=== PATIENT | female | born 1985 | race Caucasian/White ===

== ENCOUNTER 2018-06-08 19:28 | Inpatient (IN) ==
[2018-06-08] MEDS ORDERED: Sod Chloride 0.9% Inj 1,000 ML IV.SIG ONE ×2 (19:45→21:15)
--- NOTE | 2018-06-08 20:07 | ED ---
HPI General Chief complaint: Altered Mental Status Stated complaint: Medical Time Seen by Provider: 06/08/18 19:31 Source: patient and EMS Mode of arrival: EMS Limitations: altered mental status History of Present Illness HPI narrative: The patient is a 31 something appearing female who presents to the [facility] emergency department with a history of reportedly going into a fci prior to arrival and pulling the fire alarm in an agitated state. The patient was erratic and difficult to obtain a history from according to ambulance services. The patient was restrained for her and ambulance services safety. The patient reported that she was and plans to give the baby up for adoption. The patient reports that her due date is June 27, 2018. The patient on arrival is intermittently screaming and agitated. The patient is diaphoretic. The patient's initial blood pressure is 113/84, heart rate is in the 120s-130s. The patient had wetness noted on her pants and ambulance services were concerned that the patient may be an labor and had her water break. Review of systems is unable to be obtained from this agitated patient. She repeatedly is stating on arrival that she needs to push. Related Data Home Medications Medication Instructions Recorded Confirmed Unable to Obtain Home Meds 06/09/18 06/09/18 Allergies Allergy/AdvReac Type Severity Reaction Status Date / Time No Allergy Information Allergy Unverified 06/08/18 19:35 Available PMFSH History History Provided By: Patient Medical History Medical History Attention deficit disorder (Acute) Posttraumatic stress disorder (Acute) Surgical History Surgical History H/O abdominoplasty (Acute) H/O breast augmentation (Acute) History of (Acute) Social History Social History Substance History: Unable to Obtain Second Hand Smoke Exposure: No Smoking Status: Cognitive impairment Tobacco Type: Cigarettes How Often Do You Have a Drink Containing Alcohol: Unable to Obtain Hx Recent Travel: No Recent Travel in [facility] within the Last 8 Weeks: No Recent Out of Country Travel within the Last 8 Weeks: No Exam Narrative Exam Narrative: General: The patient is a well-developed well-nourished female, agitated on arrival, intermittently screaming. Head and Neck exam: Head is normocephalic atraumatic. Eyes: Patient has extraocular motion intact, conjugate gaze, eyes starting around the room. Pupils are dilated and reactive to light bilaterally, dilated to 5 mm. Nose: Midline septum with pink mucous membranes Mouth: Dentition unremarkable. Moist mucus membranes. Posterior oropharynx is not erythematous. No tonsillar hypertrophy. Uvula midline. Airway patent. Neck: No palpable lymphadenopathy. No nuchal rigidity. No thyromegaly. Cardiovascular: Sinus tachycardia in the 140s-160s without murmurs, gallops, or rubs. No pulse deficit to the extremities on simultaneous auscultation and palpation of her radial artery. Lungs: Clear to auscultation bilaterally. No wheezes, rhonchi, or rales. Abdomen: Soft, palpable fundus, no palpable contractions, however the patient is difficult to examine due to her level of agitation. No guarding, rebound, or rigidity. Extremities: No clubbing, cyanosis, or edema. 2+ pulses in all 4 extremities. Back: No costovertebral angle tenderness to palpation. Neurologic Exam: The patient is uncooperative, however she has no evidence of facial asymmetry. The patient is speaking clearly, although she has pressured speech. The patient is also tangential and difficult to redirect with the conversation. The patient has strength that is 5/5 in all 4 extremities. The patient has intact sensation over all dermatomes. Skin Exam: No rash noted. Intact skin that is warm and diaphoretic. Pelvic exam: Quickly upon the patient's arrival as there was a concern that the patient's water may have broken and she had wet pants, the patient had her close cut off and quickly a bimanual examination was done to assess for cervical dilatation, , or evidence of premature rupture of membranes. The patient had softening of the cervix, however no dilatation was noted, the patient had no significant bleeding or discharge noted. Procedures Ultrasound POC Ultrasound Procedure: A [id number] ultrasound was quickly done at the patient's bedside to assess for . The patient was noted to have an intrauterine that appear to be in the third trimester with heart activity noted that was tachycardic in the low 200s. The OB ED hospitalist was called. Course Consultations Consultation #1: The patient's case including history, pertinent physical examination findings were discussed with Dr. Luis, the DIVIN[employer] TE[employer]ER. I requested that he immediately come to the emergency department to assist with evaluation of this reportedly patient that also reports having some symptoms of labor. Consultation #2: The patient's case including history, pertinent physical examination were discussed with Dr. Marshall, the operations research manager. It was agreed that the patient would be admitted to the operations research manager service. Initial Documented Vital Signs Pulse Oximetry 99 06/08/18 19:48 Last Documented Vital Signs Temperature 97.6 F 06/09/18 20:00 Pulse Rate 87 06/09/18 22:00 Respiratory Rate 18 06/09/18 20:00 Blood Pressure 103/61 06/09/18 22:00 Pulse Oximetry 96 06/09/18 22:00 Critical Care Time Critical Care Time: Yes Total Critical Care Time: 39 Attestation: Aggregate critical care time was 39 minutes. Time to perform other separately billable procedures was not included in the critical care time. My time did not include minutes spent treating any other patients simultaneously or on activities that did not directly contribute to the patient's treatment. The services I provided to this patient were to treat and/or prevent clinically significant deterioration that could result in: Respiratory failure from sedation, versus agitation and self-harm, versus cardiovascular collapse from cardiac arrhythmia I provided critical care services requiring my management, as noted below: Chart data review, documentation time, medication orders and management, vital sign assessments/reviewing monitor data, ordering and reviewing lab tests, ordering and interpreting/reviewing x-rays and diagnostic studies, care of the patient and discussion of the patient with the admitting physicians. Medical Decision Making MDM Narrative Medical decision making narrative: During the course of the patient's emergency department visit, the patient's history, examination, and differential diagnosis were reviewed with the patient. The patient was placed on a school lunch monitor with oximetry and frequent blood pressure monitoring. The patient had IV access obtained and blood work sent for analysis. Diagnostic evaluation was started for this patient who arrives agitated, acutely psychotic. A call was urgently placed out to the OB ED physician for assistance with evaluation of the patient and her current . He did come down from the OB ED along with the nursing staff with tocometry and heart tone monitoring for the patient. The patient was initially provided normal saline 1 L IV fluid bolus, Ativan 1 mg IV was given in separate doses until adequate sedation was achieved with 4 mg IV in total. Laboratory studies are remarkable for a white count of 15.9, platelets 477, neutrophils 77.9, hemoglobin is 10.9. PT 9.6, PTT 19. Chemistry is remarkable for a troponin I of 0.02, CPK 3729, total bilirubin 1.3, glucose on chemistry was 55. Potassium 5.2, GFR 34, lipase 138, creatinine 1.33, MB percent 0.3, chloride 110, CO2 15.9, BUN 20, AST 58, anion gap 16. The patient's heart rate came down into the 120s with sedation. Unfortunately, the patient's heart tones were in the 210s and continue to be elevated even after the patient herself was resting comfortably, heart tones at that time were in the 180s. Monitoring was continued. The patient was admitted to the hospital in guarded condition and sent to a bed under the care of the operations research manager's service. Differential Diagnosis Differential Diagnosis: Sympathomimetic toxicity, versus acute psychosis from psychiatric decompensation Medical Records Medical records reviewed: Yes I reviewed the patient's medical records. We were able to identify the patient's name which is Cherrie Zapata. And I was able to review the patient's electronic medical record. According to the record she does have an allergy to cephalosporins. Lab Data Result diagrams: 06/09/18 01:39 06/09/18 17:50 Lab Results 06/08/18 06/08/18 06/08/18 Range/Units 20:15 20:15 20:15 WBC 15.9 H (4.0-11.0) th/mm3 RBC 3.79 L (4.00-5.30) mil/mm3 Hgb 10.9 L (11.6-15.3) gm/dL Hct 32.5 L (35.0-46.0) % MCV 85.9 (80.0-100.0) fL MCH 28.7 (27.0-34.0) pg MCHC 33.4 (32.0-36.0) % RDW 13.0 (11.6-17.2) % Plt Count 477 H (150-450) th/mm3 MPV 8.7 (7.0-11.0) fL Neut % (Auto) 77.9 H (16.0-70.0) % Lymph % (Auto) 15.2 (9.0-44.0) % Jefferson % (Auto) 6.3 (0.0-8.0) % Eos % (Auto) 0.1 (0.0-4.0) % Baso % (Auto) 0.5 (0.0-2.0) % Neut # (Auto) 12.4 H (1.8-7.7) th/mm3 Lymph # (Auto) 2.4 (1.0-4.8) th/mm3 Jefferson # (Auto) 1.0 H (0.0-0.9) th/mm3 Eos # (Auto) 0.0 (0.0-0.4) th/mm3 Baso # (Auto) 0.1 (0.0-0.2) th/mm3 WBC Differential . Differential Comment Auto diff final PT 9.6 L (9.8-11.6) sec INR 0.9 Ratio APTT 19.0 L (24.3-30.1) sec Sodium (136-145) meq/L Potassium (3.5-5.1) meq/L Chloride (98-107) meq/L Carbon Dioxide (21.0-32.0) meq/L Anion Gap (5-15) meq/L BUN (7-18) mg/dL Creatinine (0.50-1.00) mg/dL Estimated GFR (>89) mL/min POC Glucose (68-110) mg/dl Random Glucose (74-106) mg/dL Lactic Acid (0.4-2.0) mmol/L Calcium (8.5-10.1) mg/dL Prot Corrected Calcium (8.5-10.1) mg/dL Phosphorus (2.5-4.9) mg/dL Magnesium (1.5-2.5) mg/dL Total Bilirubin (0.2-1.0) mg/dL AST (15-37) U/L ALT (10-53) U/L Alkaline Phosphatase (45-117) U/L Total Creatine Kinase 3729 H (26-192) U/L CK-MB (CK-2) 10.9 H (0.5-3.6) ng/mL CK-MB (CK-2) % 0.3 (0.0-4.0) % Troponin I 0.02 (0.02-0.05) ng/mL Total Protein (6.4-8.2) g/dL Albumin (3.4-5.0) g/dL Lipase (73-393) U/L Urine Color (Yellw/Straw) Urine Clarity (Clear) Urine pH (5.0-8.5) Ur Specific [place] (1.002-1.035) Urine Protein (Neg-Trace) mg/dL Urine Glucose (UA) (Negative) mg/dL Urine Ketones (Negative) mg/dL Urine Occult Blood (Negative) Urine Nitrate (Negative) Urine Bilirubin (Negative) Urine Urobilinogen (Less than 2) mg/dL Ur Leukocyte Esterase (Negative) Ur Squamous Epith Cells (0-5) /hpf Amorphous Sediment (None) /hpf Urine Mucus (Occasional) /lpf Micro UA Comment Urine Culture Comments Nasal Screen MRSA (PCR) (Negative) Urine Opiates Screen Ur Barbiturates Screen Ur Amphetamine Screen (Neg) Ur Amphetamines Screen U Benzodiazepines Scrn Urine Cocaine Screen U Cannabinoids Screen RPR (Nonreactive) Hepatitis A IgM Ab (Nonreactive) Hep Bs Antigen (Nonreactive) Hep B Core IgM Ab (Nonreactive) Hep C IgG Ab (Nonreactive) HIV 1&2 Ab/P24 Ag 4thGn (Nonreactive) Blood Type Blood Type Recheck Antibody Screen 06/08/18 06/08/18 06/08/18 Range/Units 20:15 22:23 22:25 WBC (4.0-11.0) th/mm3 RBC (4.00-5.30) mil/mm3 Hgb (11.6-15.3) gm/dL Hct (35.0-46.0) % MCV (80.0-100.0) fL MCH (27.0-34.0) pg MCHC (32.0-36.0) % RDW (11.6-17.2) % Plt Count (150-450) th/mm3 MPV (7.0-11.0) fL Neut % (Auto) (16.0-70.0) % Lymph % (Auto) (9.0-44.0) % Jefferson % (Auto) (0.0-8.0) % Eos % (Auto) (0.0-4.0) % Baso % (Auto) (0.0-2.0) % Neut # (Auto) (1.8-7.7) th/mm3 Lymph # (Auto) (1.0-4.8) th/mm3 Jefferson # (Auto) (0.0-0.9) th/mm3 Eos # (Auto) (0.0-0.4) th/mm3 Baso # (Auto) (0.0-0.2) th/mm3 WBC Differential Differential Comment PT (9.8-11.6) sec INR Ratio APTT (24.3-30.1) sec Sodium 142 (136-145) meq/L Potassium 5.2 H (3.5-5.1) meq/L Chloride 110 H (98-107) meq/L Carbon Dioxide 15.9 L (21.0-32.0) meq/L Anion Gap 16 H (5-15) meq/L BUN 20 H (7-18) mg/dL Creatinine 1.33 H (0.50-1.00) mg/dL Estimated GFR 34 L (>89) mL/min POC Glucose 71 (68-110) mg/dl Random Glucose 55 L (74-106) mg/dL Lactic Acid (0.4-2.0) mmol/L Calcium 9.3 (8.5-10.1) mg/dL Prot Corrected Calcium (8.5-10.1) mg/dL Phosphorus (2.5-4.9) mg/dL Magnesium (1.5-2.5) mg/dL Total Bilirubin 1.3 H (0.2-1.0) mg/dL AST 58 H (15-37) U/L ALT 29 (10-53) U/L Alkaline Phosphatase 99 (45-117) U/L Total Creatine Kinase (26-192) U/L CK-MB (CK-2) (0.5-3.6) ng/mL CK-MB (CK-2) % (0.0-4.0) % Troponin I (0.02-0.05) ng/mL Total Protein 7.9 (6.4-8.2) g/dL Albumin 3.5 (3.4-5.0) g/dL Lipase 138 (73-393) U/L Urine Color Yellow (Yellw/Straw) Urine Clarity Slightly cloudy (Clear) Urine pH 5.5 (5.0-8.5) Ur Specific [place] 1.018 (1.002-1.035) Urine Protein 100 H (Neg-Trace) mg/dL Urine Glucose (UA) Negative (Negative) mg/dL Urine Ketones 40 H (Negative) mg/dL Urine Occult Blood Large H (Negative) Urine Nitrate Negative (Negative) Urine Bilirubin Negative (Negative) Urine Urobilinogen 0.2 (Less than 2) mg/dL Ur Leukocyte Esterase Negative (Negative) Ur Squamous Epith Cells 0-5 (0-5) /hpf Amorphous Sediment Few H (None) /hpf Urine Mucus Moderate H (Occasional) /lpf Micro UA Comment Cath-culture not ind Urine Culture Comments Cath-cult not ind Nasal Screen MRSA (PCR) (Negative) Urine Opiates Screen Ur Barbiturates Screen Ur Amphetamine Screen (Neg) Ur Amphetamines Screen U Benzodiazepines Scrn Urine Cocaine Screen U Cannabinoids Screen RPR (Nonreactive) Hepatitis A IgM Ab (Nonreactive) Hep Bs Antigen (Nonreactive) Hep B Core IgM Ab (Nonreactive) Hep C IgG Ab (Nonreactive) HIV 1&2 Ab/P24 Ag 4thGn (Nonreactive) Blood Type Blood Type Recheck Antibody Screen 06/08/18 06/08/18 06/09/18 Range/Units 22:25 22:25 00:35 WBC (4.0-11.0) th/mm3 RBC (4.00-5.30) mil/mm3 Hgb (11.6-15.3) gm/dL Hct (35.0-46.0) % MCV (80.0-100.0) fL MCH (27.0-34.0) pg MCHC (32.0-36.0) % RDW (11.6-17.2) % Plt Count (150-450) th/mm3 MPV (7.0-11.0) fL Neut % (Auto) (16.0-70.0) % Lymph % (Auto) (9.0-44.0) % Jefferson % (Auto) (0.0-8.0) % Eos % (Auto) (0.0-4.0) % Baso % (Auto) (0.0-2.0) % Neut # (Auto) (1.8-7.7) th/mm3 Lymph # (Auto) (1.0-4.8) th/mm3 Jefferson # (Auto) (0.0-0.9) th/mm3 Eos # (Auto) (0.0-0.4) th/mm3 Baso # (Auto) (0.0-0.2) th/mm3 WBC Differential Differential Comment PT (9.8-11.6) sec INR Ratio APTT (24.3-30.1) sec Sodium (136-145) meq/L Potassium (3.5-5.1) meq/L Chloride (98-107) meq/L Carbon Dioxide (21.0-32.0) meq/L Anion Gap (5-15) meq/L BUN (7-18) mg/dL Creatinine (0.50-1.00) mg/dL Estimated GFR (>89) mL/min POC Glucose (68-110) mg/dl Random Glucose (74-106) mg/dL Lactic Acid (0.4-2.0) mmol/L Calcium (8.5-10.1) mg/dL Prot Corrected Calcium (8.5-10.1) mg/dL Phosphorus (2.5-4.9) mg/dL Magnesium (1.5-2.5) mg/dL Total Bilirubin (0.2-1.0) mg/dL AST (15-37) U/L ALT (10-53) U/L Alkaline Phosphatase (45-117) U/L Total Creatine Kinase (26-192) U/L CK-MB (CK-2) (0.5-3.6) ng/mL CK-MB (CK-2) % (0.0-4.0) % Troponin I (0.02-0.05) ng/mL Total Protein (6.4-8.2) g/dL Albumin (3.4-5.0) g/dL Lipase (73-393) U/L Urine Color (Yellw/Straw) Urine Clarity (Clear) Urine pH (5.0-8.5) Ur Specific [place] (1.002-1.035) Urine Protein (Neg-Trace) mg/dL Urine Glucose (UA) (Negative) mg/dL Urine Ketones (Negative) mg/dL Urine Occult Blood (Negative) Urine Nitrate (Negative) Urine Bilirubin (Negative) Urine Urobilinogen (Less than 2) mg/dL Ur Leukocyte Esterase (Negative) Ur Squamous Epith Cells (0-5) /hpf Amorphous Sediment (None) /hpf Urine Mucus (Occasional) /lpf Micro UA Comment Urine Culture Comments Nasal Screen MRSA (PCR) Not detected (Negative) Urine Opiates Screen Cancelled Neg Ur Barbiturates Screen Cancelled Neg Ur Amphetamine Screen Pos H (Neg) Ur Amphetamines Screen Cancelled U Benzodiazepines Scrn Cancelled Neg Urine Cocaine Screen Cancelled Neg U Cannabinoids Screen Cancelled Neg RPR (Nonreactive) Hepatitis A IgM Ab (Nonreactive) Hep Bs Antigen (Nonreactive) Hep B Core IgM Ab (Nonreactive) Hep C IgG Ab (Nonreactive) HIV 1&2 Ab/P24 Ag 4thGn (Nonreactive) Blood Type Blood Type Recheck Antibody Screen 06/09/18 06/09/18 06/09/18 Range/Units 01:15 01:39 01:39 WBC (4.0-11.0) th/mm3 RBC (4.00-5.30) mil/mm3 Hgb (11.6-15.3) gm/dL Hct (35.0-46.0) % MCV (80.0-100.0) fL MCH (27.0-34.0) pg MCHC (32.0-36.0) % RDW (11.6-17.2) % Plt Count (150-450) th/mm3 MPV (7.0-11.0) fL Neut % (Auto) (16.0-70.0) % Lymph % (Auto) (9.0-44.0) % Jefferson % (Auto) (0.0-8.0) % Eos % (Auto) (0.0-4.0) % Baso % (Auto) (0.0-2.0) % Neut # (Auto) (1.8-7.7) th/mm3 Lymph # (Auto) (1.0-4.8) th/mm3 Jefferson # (Auto) (0.0-0.9) th/mm3 Eos # (Auto) (0.0-0.4) th/mm3 Baso # (Auto) (0.0-0.2) th/mm3 WBC Differential Differential Comment PT 9.5 L (9.8-11.6) sec INR 0.9 Ratio APTT 23.1 L D (24.3-30.1) sec Sodium (136-145) meq/L Potassium (3.5-5.1) meq/L Chloride (98-107) meq/L Carbon Dioxide (21.0-32.0) meq/L Anion Gap (5-15) meq/L BUN (7-18) mg/dL Creatinine (0.50-1.00) mg/dL Estimated GFR (>89) mL/min POC Glucose 163 H (68-110) mg/dl Random Glucose (74-106) mg/dL Lactic Acid (0.4-2.0) mmol/L Calcium (8.5-10.1) mg/dL Prot Corrected Calcium (8.5-10.1) mg/dL Phosphorus (2.5-4.9) mg/dL Magnesium (1.5-2.5) mg/dL Total Bilirubin (0.2-1.0) mg/dL AST (15-37) U/L ALT (10-53) U/L Alkaline Phosphatase (45-117) U/L Total Creatine Kinase (26-192) U/L CK-MB (CK-2) (0.5-3.6) ng/mL CK-MB (CK-2) % (0.0-4.0) % Troponin I (0.02-0.05) ng/mL Total Protein (6.4-8.2) g/dL Albumin (3.4-5.0) g/dL Lipase (73-393) U/L Urine Color (Yellw/Straw) Urine Clarity (Clear) Urine pH (5.0-8.5) Ur Specific [place] (1.002-1.035) Urine Protein (Neg-Trace) mg/dL Urine Glucose (UA) (Negative) mg/dL Urine Ketones (Negative) mg/dL Urine Occult Blood (Negative) Urine Nitrate (Negative) Urine Bilirubin (Negative) Urine Urobilinogen (Less than 2) mg/dL Ur Leukocyte Esterase (Negative) Ur Squamous Epith Cells (0-5) /hpf Amorphous Sediment (None) /hpf Urine Mucus (Occasional) /lpf Micro UA Comment Urine Culture Comments Nasal Screen MRSA (PCR) (Negative) Urine Opiates Screen Ur Barbiturates Screen Ur Amphetamine Screen (Neg) Ur Amphetamines Screen U Benzodiazepines Scrn Urine Cocaine Screen U Cannabinoids Screen RPR (Nonreactive) Hepatitis A IgM Ab (Nonreactive) Hep Bs Antigen (Nonreactive) Hep B Core IgM Ab (Nonreactive) Hep C IgG Ab (Nonreactive) HIV 1&2 Ab/P24 Ag 4thGn (Nonreactive) Blood Type O Positive Blood Type Recheck Not needed Antibody Screen Negative 06/09/18 06/09/18 06/09/18 Range/Units 01:39 01:39 01:39 WBC 14.0 H (4.0-11.0) th/mm3 RBC 3.52 L (4.00-5.30) mil/mm3 Hgb 10.1 L (11.6-15.3) gm/dL Hct 30.5 L (35.0-46.0) % MCV 86.7 (80.0-100.0) fL MCH 28.8 (27.0-34.0) pg MCHC 33.3 (32.0-36.0) % RDW 13.5 (11.6-17.2) % Plt Count 353 (150-450) th/mm3 MPV 8.0 (7.0-11.0) fL Neut % (Auto) 91.4 H (16.0-70.0) % Lymph % (Auto) 5.4 L (9.0-44.0) % Jefferson % (Auto) 3.1 (0.0-8.0) % Eos % (Auto) 0.0 (0.0-4.0) % Baso % (Auto) 0.1 (0.0-2.0) % Neut # (Auto) 12.8 H (1.8-7.7) th/mm3 Lymph # (Auto) 0.8 L (1.0-4.8) th/mm3 Jefferson # (Auto) 0.4 (0.0-0.9) th/mm3 Eos # (Auto) 0.0 (0.0-0.4) th/mm3 Baso # (Auto) 0.0 (0.0-0.2) th/mm3 WBC Differential . Differential Comment Auto diff final PT (9.8-11.6) sec INR Ratio APTT (24.3-30.1) sec Sodium 142 (136-145) meq/L Potassium 4.1 D (3.5-5.1) meq/L Chloride 114 H (98-107) meq/L Carbon Dioxide 9.2 L (21.0-32.0) meq/L Anion Gap 19 H (5-15) meq/L BUN 17 (7-18) mg/dL Creatinine 0.91 (0.50-1.00) mg/dL Estimated GFR 53 L (>89) mL/min POC Glucose (68-110) mg/dl Random Glucose 152 H (74-106) mg/dL Lactic Acid 0.7 (0.4-2.0) mmol/L Calcium 7.7 L D (8.5-10.1) mg/dL Prot Corrected Calcium (8.5-10.1) mg/dL Phosphorus 4.5 (2.5-4.9) mg/dL Magnesium 4.7 H (1.5-2.5) mg/dL Total Bilirubin 0.8 (0.2-1.0) mg/dL AST 313 H (15-37) U/L ALT 82 H (10-53) U/L Alkaline Phosphatase 86 (45-117) U/L Total Creatine Kinase (26-192) U/L CK-MB (CK-2) (0.5-3.6) ng/mL CK-MB (CK-2) % (0.0-4.0) % Troponin I 0.13 H D (0.02-0.05) ng/mL Total Protein 6.7 D (6.4-8.2) g/dL Albumin 3.1 L (3.4-5.0) g/dL Lipase (73-393) U/L Urine Color (Yellw/Straw) Urine Clarity (Clear) Urine pH (5.0-8.5) Ur Specific [place] (1.002-1.035) Urine Protein (Neg-Trace) mg/dL Urine Glucose (UA) (Negative) mg/dL Urine Ketones (Negative) mg/dL Urine Occult Blood (Negative) Urine Nitrate (Negative) Urine Bilirubin (Negative) Urine Urobilinogen (Less than 2) mg/dL Ur Leukocyte Esterase (Negative) Ur Squamous Epith Cells (0-5) /hpf Amorphous Sediment (None) /hpf Urine Mucus (Occasional) /lpf Micro UA Comment Urine Culture Comments Nasal Screen MRSA (PCR) (Negative) Urine Opiates Screen Ur Barbiturates Screen Ur Amphetamine Screen (Neg) Ur Amphetamines Screen U Benzodiazepines Scrn Urine Cocaine Screen U Cannabinoids Screen RPR (Nonreactive) Hepatitis A IgM Ab (Nonreactive) Hep Bs Antigen (Nonreactive) Hep B Core IgM Ab (Nonreactive) Hep C IgG Ab (Nonreactive) HIV 1&2 Ab/P24 Ag 4thGn (Nonreactive) Blood Type Blood Type Recheck Antibody Screen 06/09/18 06/09/18 06/09/18 Range/Units 01:39 01:39 05:07 WBC (4.0-11.0) th/mm3 RBC (4.00-5.30) mil/mm3 Hgb (11.6-15.3) gm/dL Hct (35.0-46.0) % MCV (80.0-100.0) fL MCH (27.0-34.0) pg MCHC (32.0-36.0) % RDW (11.6-17.2) % Plt Count (150-450) th/mm3 MPV (7.0-11.0) fL Neut % (Auto) (16.0-70.0) % Lymph % (Auto) (9.0-44.0) % Jefferson % (Auto) (0.0-8.0) % Eos % (Auto) (0.0-4.0) % Baso % (Auto) (0.0-2.0) % Neut # (Auto) (1.8-7.7) th/mm3 Lymph # (Auto) (1.0-4.8) th/mm3 Jefferson # (Auto) (0.0-0.9) th/mm3 Eos # (Auto) (0.0-0.4) th/mm3 Baso # (Auto) (0.0-0.2) th/mm3 WBC Differential Differential Comment PT (9.8-11.6) sec INR Ratio APTT (24.3-30.1) sec Sodium (136-145) meq/L Potassium (3.5-5.1) meq/L Chloride (98-107) meq/L Carbon Dioxide (21.0-32.0) meq/L Anion Gap (5-15) meq/L BUN (7-18) mg/dL Creatinine (0.50-1.00) mg/dL Estimated GFR (>89) mL/min POC Glucose 119 H (68-110) mg/dl Random Glucose (74-106) mg/dL Lactic Acid (0.4-2.0) mmol/L Calcium (8.5-10.1) mg/dL Prot Corrected Calcium (8.5-10.1) mg/dL Phosphorus (2.5-4.9) mg/dL Magnesium (1.5-2.5) mg/dL Total Bilirubin (0.2-1.0) mg/dL AST (15-37) U/L ALT (10-53) U/L Alkaline Phosphatase (45-117) U/L Total Creatine Kinase (26-192) U/L CK-MB (CK-2) (0.5-3.6) ng/mL CK-MB (CK-2) % (0.0-4.0) % Troponin I (0.02-0.05) ng/mL Total Protein (6.4-8.2) g/dL Albumin (3.4-5.0) g/dL Lipase (73-393) U/L Urine Color (Yellw/Straw) Urine Clarity (Clear) Urine pH (5.0-8.5) Ur Specific [place] (1.002-1.035) Urine Protein (Neg-Trace) mg/dL Urine Glucose (UA) (Negative) mg/dL Urine Ketones (Negative) mg/dL Urine Occult Blood (Negative) Urine Nitrate (Negative) Urine Bilirubin (Negative) Urine Urobilinogen (Less than 2) mg/dL Ur Leukocyte Esterase (Negative) Ur Squamous Epith Cells (0-5) /hpf Amorphous Sediment (None) /hpf Urine Mucus (Occasional) /lpf Micro UA Comment Urine Culture Comments Nasal Screen MRSA (PCR) (Negative) Urine Opiates Screen Ur Barbiturates Screen Ur Amphetamine Screen (Neg) Ur Amphetamines Screen U Benzodiazepines Scrn Urine Cocaine Screen U Cannabinoids Screen RPR Nonreactive (Nonreactive) Hepatitis A IgM Ab Nonreactive (Nonreactive) Hep Bs Antigen Nonreactive (Nonreactive) Hep B Core IgM Ab Nonreactive (Nonreactive) Hep C IgG Ab Nonreactive (Nonreactive) HIV 1&2 Ab/P24 Ag 4thGn Nonreactive (Nonreactive) Blood Type Blood Type Recheck Antibody Screen 06/09/18 06/09/18 Range/Units 17:50 17:50 WBC (4.0-11.0) th/mm3 RBC (4.00-5.30) mil/mm3 Hgb (11.6-15.3) gm/dL Hct (35.0-46.0) % MCV (80.0-100.0) fL MCH (27.0-34.0) pg MCHC (32.0-36.0) % RDW (11.6-17.2) % Plt Count (150-450) th/mm3 MPV (7.0-11.0) fL Neut % (Auto) (16.0-70.0) % Lymph % (Auto) (9.0-44.0) % [place] % (Auto) (0.0-8.0) % Eos % (Auto) (0.0-4.0) % Baso % (Auto) (0.0-2.0) % Neut # (Auto) (1.8-7.7) th/mm3 Lymph # (Auto) (1.0-4.8) th/mm3 [place] # (Auto) (0.0-0.9) th/mm3 Eos # (Auto) (0.0-0.4) th/mm3 Baso # (Auto) (0.0-0.2) th/mm3 WBC Differential Differential Comment PT (9.8-11.6) sec INR Ratio APTT (24.3-30.1) sec Sodium 137 (136-145) meq/L Potassium 3.8 (3.5-5.1) meq/L Chloride 110 H (98-107) meq/L Carbon Dioxide 11.4 L (21.0-32.0) meq/L Anion Gap 16 H (5-15) meq/L BUN 8 (7-18) mg/dL Creatinine 0.63 (0.50-1.00) mg/dL Estimated GFR Greater than 89 (>89) mL/min POC Glucose (68-110) mg/dl Random Glucose 158 H (74-106) mg/dL Lactic Acid 0.8 (0.4-2.0) mmol/L Calcium 6.4 L* D (8.5-10.1) mg/dL Prot Corrected Calcium 6.8 L* (8.5-10.1) mg/dL Phosphorus (2.5-4.9) mg/dL Magnesium (1.5-2.5) mg/dL Total Bilirubin 0.7 (0.2-1.0) mg/dL AST 440 H (15-37) U/L ALT 154 H (10-53) U/L Alkaline Phosphatase 82 (45-117) U/L Total Creatine Kinase 47210 H (26-192) U/L CK-MB (CK-2) 106.1 H (0.5-3.6) ng/mL CK-MB (CK-2) % 0.3 (0.0-4.0) % Troponin I (0.02-0.05) ng/mL Total Protein 6.2 L (6.4-8.2) g/dL Albumin 2.8 L (3.4-5.0) g/dL Lipase (73-393) U/L Urine Color (Yellw/Straw) Urine Clarity (Clear) Urine pH (5.0-8.5) Ur Specific [place] (1.002-1.035) Urine Protein (Neg-Trace) mg/dL Urine Glucose (UA) (Negative) mg/dL Urine Ketones (Negative) mg/dL Urine Occult Blood (Negative) Urine Nitrate (Negative) Urine Bilirubin (Negative) Urine Urobilinogen (Less than 2) mg/dL Ur Leukocyte Esterase (Negative) Ur Squamous Epith Cells (0-5) /hpf Amorphous Sediment (None) /hpf Urine Mucus (Occasional) /lpf Micro UA Comment Urine Culture Comments Nasal Screen MRSA (PCR) (Negative) Urine Opiates Screen Ur Barbiturates Screen Ur Amphetamine Screen (Neg) Ur Amphetamines Screen U Benzodiazepines Scrn Urine Cocaine Screen U Cannabinoids Screen RPR (Nonreactive) Hepatitis A IgM Ab (Nonreactive) Hep Bs Antigen (Nonreactive) Hep B Core IgM Ab (Nonreactive) Hep C IgG Ab (Nonreactive) HIV 1&2 Ab/P24 Ag 4thGn (Nonreactive) Blood Type Blood Type Recheck Antibody Screen Discharge Plan Discharge Disposition Patient Disposition: 30 Still Patient Discharge Details Diagnosis: Altered mental status, distress, Psychosis Physicians Team ED Provider: Pat Cordero Primary Care Provider: UNKNOWN, Attending Provider: Zohaib Marshall Discharge Interventions Interventions: ED Discharge Assessment Last Done: 06/09/18 00:05 Vital Signs Last Done: 06/08/18 20:55 Status ED Status: Left Department Discharge Information Discharge Date/Time: 06/09/18 00:05
[2018-06-08 20:30] LABS: Baso # (Auto) 0.1 th/mm3 (0.0-0.2); Baso % (Auto) 0.5 % (0.0-2.0); Eos % (Auto) 0.1 % (0.0-4.0); Hematocrit 32.5 % (35.0-46.0); Hemoglobin 10.9 gm/dL (11.6-15.3); Lymph # (Auto) 2.4 th/mm3 (1.0-4.8); Lymph % (Auto) 15.2 % (9.0-44.0); Mean Corpuscular HGB Conc 33.4 % (32.0-36.0); Mean Corpuscular Hemoglobin 28.7 pg (27.0-34.0); Mean Corpuscular Volume 85.9 fL (80.0-100.0); Mean Platelet Volume 8.7 fL (7.0-11.0); Mono % (Auto) 6.3 % (0.0-8.0); Neut # (Auto) 12.4 th/mm3 (1.8-7.7); Neut % (Auto) 77.9 % (16.0-70.0); Platelet Count 477 th/mm3 (150-450); Red Blood Count 3.79 mil/mm3 (4.00-5.30); White Blood Count 15.9 th/mm3 (4.0-11.0)
[2018-06-08 20:45] LABS: Albumin 3.5 g/dL (3.4-5.0); Anion Gap 16 meq/L (5-15); Aspartate Aminotransferase 58 U/L (15-37); Blood Urea Nitrogen 20 mg/dL (7-18); Calcium 9.3 mg/dL (8.5-10.1); Carbon Dioxide 15.9 meq/L (21.0-32.0); Chloride 110 meq/L (98-107); Glomerular Filtration Rate 34 mL/min (>89); Glucose,Random 55 mg/dL (74-106); Lipase 138 U/L (73-393); Potassium 5.2 meq/L (3.5-5.1); Sodium 142 meq/L (136-145)
[2018-06-08 20:46] LABS: Alanine Aminotransferase 29 U/L (10-53)
[2018-06-08 20:48] LABS: Alkaline Phosphatase 99 U/L (45-117); Total Protein 7.9 g/dL (6.4-8.2)
[2018-06-08 20:49] LABS: INR 0.9 Ratio; Prothrombin Time 9.6 sec (9.8-11.6)
[2018-06-08 21:00] LABS: Troponin I 0.02 ng/mL (0.02-0.05)
[2018-06-08] MEDS ORDERED: Acetaminophen 325 MG Tablet PO PRN (21:05)
[2018-06-08] MEDS ORDERED: Bisacodyl 10 MG Supp RECTAL PRN (21:05)
[2018-06-08 21:13] LABS: CKMB Percent 0.3 % (0.0-4.0); Creatine Kinase MB 10.9 ng/mL (0.5-3.6)
[2018-06-08] MEDS ORDERED: Sod Chloride 0.9% Inj 1,000 ML IV.CONT SCH (21:15)
--- NOTE | 2018-06-08 21:21 | P.HPCC ---
History of Present Illness History of Present Illness: Young female in her 30s presents with a history of reportedly going into a penitentiary prior to arrival and pulling the fire alarm in an agitated state. The patient was erratic and difficult to obtain a history from according to ambulance services. The patient was restrained for her and ambulance services safety. The patient reported that she was and plans to give the baby up for adoption. The patient reports that her due date is June 27, 2018. The patient on arrival was intermittently screaming and agitated. She has a past medical history of cocaine use and was suspected to be cocaine intoxicated due to tachycardia as well as the baby's heart rate was extremely high. She has received some Ativan in the emergency department. However the patient claims that she was taking only Adderall today. Her drug screen toxicology shows only amphetamines. Patient was evaluated by [employer] physician in the emergency department and he will follow for her through the hospital stay. Inpatient Certification: I certify that the inpatient services were ordered in accordance with Medicare regulations governing the order. This includes certification that hospital inpatient services are reasonable and necessary and in the case of services not specified as inpatient-only under 42 CFR 419.22(n), that they are appropriately provided as inpatient services in accordance to with the 2-midnight benchmark under 43 CFR 412.3(e) Estimated Total Length of Stay (Days): 5 Plans for Post Hospital Care: Not yet determined Review of Systems unobtainable due to mental condition PMFSH - History History Provided By: Patient - Medical History Medical History: Medical History (Last Reviewed 06/08/18 @ 23:50 by Joe Celis MD) Attention deficit disorder Posttraumatic stress disorder - Surgical History Surgical History: Surgical History (Last Updated 06/08/18 @ 23:50 by Joe Celis MD) H/O abdominoplasty H/O breast augmentation History of - Tobacco History Smoking Status: Cognitive impairment - Alcohol History How Often Do You Have a Drink Containing Alcohol: Unable to Obtain - Substance Use History Substance History: Unable to Obtain - Travel History History of Recent Travel: No Recent Travel in the [place] Within the Last 8 Weeks: No Recent Travel Out of the Country Within the Last 8 Weeks: No Medications and Allergies Active Medications: Active Medications Acetaminophen (Tylenol) 650 mg PO Q6H PRN PRN Reason: PAIN 1-10 AND/OR FEVER >101F Al Hydroxide/Mg Hydroxide (Milk Of Magnesia Liq) 30 ml PO Q12H PRN PRN Reason: Mild Constipation Albuterol (Duoneb Neb (Prn)) 1 ampul NEB Q2HR NEB PRN PRN Reason: WHEEZING Bisacodyl (Dulcolax Supp) 10 mg RECTAL DAILY PRN PRN Reason: SEVERE CONSITIPATION Chlorhexidine Gluconate (Chlorhexidine 2% Cloth) 3 pack TOPICAL DAILY@0400 SUE Stop: 06/14/18 03:59 Chlorhexidine Gluconate (Chlorhexidine 2% Cloth) 3 pack TOPICAL DAILY@0400 PRN PRN Reason: Extra cloth needed Stop: 06/14/18 03:59 Famotidine (Pepcid Pf Inj) 20 mg IV.PUSH Q12HR SUE Sodium Chloride (Ns Inj) 1,000 mls @ 154 mls/hr IV.CONT .Q6H30M SUE Sodium Chloride (Ns Inj) 1,000 mls @ 0 mls/hr IV.SIG BOLUS ONE Stop: 06/08/18 21:16 Lactulose (Lactulose Liq) 30 ml PO DAILY PRN PRN Reason: SEVERE CONSITIPATION Lorazepam (Ativan Inj) 1 mg IV.PUSH Q1H PRN PRN Reason: Agitation/sedation Ondansetron HCl (Zofran Inj) 4 mg IV.PUSH Q6H PRN PRN Reason: NAUSEA OR VOMITING Senna/Docusate Sodium (Ora-Colace) 1 tab PO BID SUE Sennosides (Senokot) 17.2 mg PO Q12H PRN PRN Reason: Moderate Constipation Sodium Chloride (Ns Flush) 2 ml IV.FLUSH PRN PRN PRN Reason: FLUSH AFTER USING IV ACCESS Sodium Chloride (Ns Flush) 2 ml IV.FLUSH BID SUE Sodium Chloride (Ns Flush) 2 ml IV.FLUSH PRN PRN PRN Reason: FLUSH AFTER USING IV ACCESS Allergies Allergy/AdvReac Type Severity Reaction Status Date / Time No Allergy Information Allergy Unverified 06/08/18 19:35 Available Home Medications Medication Instructions Recorded Confirmed Type Unable to Obtain Home Meds 06/09/18 06/09/18 History Results - Labs CBC & Chem 7: 06/09/18 01:39 06/09/18 01:39 Labs: Short CBC 06/08/18 Range/Units 20:15 WBC 15.9 H (4.0-11.0) th/mm3 Hgb 10.9 L (11.6-15.3) gm/dL Hct 32.5 L (35.0-46.0) % Plt Count 477 H (150-450) th/mm3 BMP 06/08/18 20:15 Sodium 142 Potassium 5.2 H Chloride 110 H Carbon Dioxide 15.9 L BUN 20 H Creatinine 1.33 H Calcium 9.3 Cardiac Enzymes 06/08/18 Range/Units 20:15 Total Creatine Kinase 3729 H (26-192) U/L CK-MB (CK-2) 10.9 H (0.5-3.6) ng/mL Troponin I 0.02 (0.02-0.05) ng/mL Liver Function 06/08/18 Range/Units 20:15 Total Bilirubin 1.3 H (0.2-1.0) mg/dL AST 58 H (15-37) U/L ALT 29 (10-53) U/L Alkaline Phosphatase 99 (45-117) U/L Albumin 3.5 (3.4-5.0) g/dL Exam Vital signs: Vital Signs 06/08/18 19:48 06/08/18 20:08 06/08/18 20:30 Pulse Rate Respiratory Rate Blood Pressure 184/78 H Pulse Oximetry 99 98 100 06/08/18 20:55 Pulse Rate 120 H Respiratory Rate 28 H Blood Pressure 118/59 L Pulse Oximetry 100 Intake & Output 06/08/18 06/08/18 06/09/18 06:59 18:59 06:59 Weight 63.796 kg - Constitutional moderate distress - Routine HEENT Exam Head: Present: normocephalic, atraumatic Eye: Present: PERRL ENT: Present: mucous membranes moist - Routine Neck Exam Present: supple. Absent: JVD, carotid bruit - Routine Respiratory Exam Absent: accessory muscle use, rales, respiratory distress, rhonchi, wheezes, crackles - Routine Cardiovascular Exam Present: RRR, S1, S2, tachycardia - Routine Abdominal Exam Present: soft, normoactive bowel sounds. Absent: tenderness - Routine Extremities Exam Absent: cyanosis, clubbing, edema - Routine Skin Exam Present: intact. Absent: cyanosis, erythema - Routine Neurological Exam Present: moving all extremities. Absent: motor deficit, clonus Caprini VTE Risk Assessment Caprini VTE Risk Assessment: Moderate/High Risk (score >= 2) Caprini Risk Assessment Model: Point Value = 1 Point Value = 2 Point Value = 3 Point Value = 5 Age 41-60 Minor surgery BMI > 25 kg/m2 Swollen legs Varicose veins or History of unexplained or recurrent spontaneous Oral contraceptives or hormone replacement Sepsis (< 1 month) Serious lung disease, including pneumonia (< 1 month) Abnormal pulmonary function Acute myocardial infarction Congestive heart failure (< 1 month) History of inflammatory bowel disease Medical patient at bed rest Age 61-74 Arthroscopic surgery Major open surgery (> 45 min) Laparoscopic surgery (> 45 min) Malignancy Confined to bed (> 72 hours) Immobilizing plaster cast Central venous access Age >= 75 History of VTE Family history of VTE Factor V Leiden Prothrombin [id number] Lupus anticoagulant Anticardiolipin antibodies Elevated serum homocysteine Heparin-induced thrombocytopenia Other congenital or acquired thrombophilia Stroke (< 1 month) Elective arthroplasty Hip, pelvis, or leg fracture Acute spinal cord injury (< 1 month) Prophylaxis Regimen: Total Risk Factor Score Risk Level Prophylaxis Regimen 0-1 Low Early ambulation 2 Moderate Order ONE of the following: *Sequential Compression Device (SCD) *Heparin 5000 units SQ BID 3-4 Higher Order ONE of the following medications: *Heparin 5000 units SQ TID *Enoxaparin/Lovenox 40 mg SQ daily (WT < 150 kg, CrCl > 30 mL/min) *Enoxaparin/Lovenox 30 mg SQ daily (WT < 150 kg, CrCl > 10-29 mL/min) *Enoxaparin/Lovenox 30 mg SQ BID (WT < 150 kg, CrCl > 30 mL/min) AND/OR *Sequential Compression Device (SCD) 5 or more Highest Order ONE of the following medications: *Heparin 5000 units SQ TID (Preferred with Epidurals) *Enoxaparin/Lovenox 40 mg SQ daily (WT < 150 kg, CrCl > 30 mL/min) *Enoxaparin/Lovenox 30 mg SQ daily (WT < 150 kg, CrCl > 10-29 mL/min) *Enoxaparin/Lovenox 30 mg SQ BID (WT < 150 kg, CrCl > 30 mL/min) AND *Sequential Compression Device (SCD) Assessment and Plan - Assessment and Plan Plan: Intoxication -Amphetamine -Ativan as needed -ICU telemetry -Neuro checks per unit protocol -IV fluid hydration -Dr. Celis -[employer] WORKER greatly appreciated -high risk for placental abruption -continuous monitoring -Betamethasone therapy for lung maturation -IV magnesium sulfate for neuro protection Rhabdomyolysis -Sodium bicarbonate drip for urine alkalinization -Frequent CPKs Acute kidney injury -Dehydration -Strict I's and O's -IV hydration -Frequent labs Anemia -Monitor H&H -Transfuse to keep hemoglobin above 8 DVT GI prophylaxis -Teds SCDs -Early aggressive mobilization -Pepcid Critical Care: The total critical care time was 35 minutes. Time to perform other separately billable procedures was not included in the critical care time.
[2018-06-08] MEDS ORDERED: Mag Sulf/Water 4 gm/100 ml 100 ML IV.SIG ONE (22:00)
[2018-06-08] MEDS: Betamethasone Sod Phos/Acetate Inj 30 MG/5 ML Vial IM SCH (22:53)
[2018-06-08 22:57] LABS: Clarity,Urine Slightly Cloudy (Clear); Color,Urine Yellow (Yellw/Straw); Glucose,Urine (UA) Negative (Negative); Leukocyte Esterase,Urine Negative (Negative); Nitrite,Urine Negative (Negative); PH,Urine 5.5 (5.0-8.5); Urobilinogen,Urine 0.2 mg/dL (Less than 2)
[2018-06-08 23:01] LABS: Bilirubin,Urine Negative (Negative)
[2018-06-08 23:06] LABS: Amorphous Sediment,Urine Few /hpf; Mucus,Urine Moderate /lpf (Occasional); Specific Gravity,Urine 1.018 (1.002-1.035); Squamous Epithelial Cell,Urine 0-5 /hpf (0-5)
[2018-06-08] MEDS: Mag Sulf/Water 40 gm/1000 ml 40 GM/1,000 ML BAG IV.CONT SCH (23:43)
--- NOTE | 2018-06-09 | P.CONOB ---
History of Present Illness History of Present Illness: I was called emergently to the emergency department by Dr. Cordero to evaluate a adult female thought to be suffering from illicit drug induced medical /psychiatric crisis. Upon arrival in the patient's room the patient was combative and nonsensical and was restrained in four-point restraints. A brief [id number] ultrasound demonstrated a biparietal diameter consistent with roughly 30 weeks gestation with a viable intrauterine noted with tachycardia and heart rate over 200. There were no palpable contractions appreciated in the fundus was soft. Cervical examination demonstrated a long closed cervix with no evidence of leakage of fluid or bleeding. The patient became less combative after 5 mg of Ativan. Formal ultrasound was performed by OB diagnostics at that time and a record was located indicating that the patient was 31 weeks and 3 days gestation by a 20 week ultrasound performed in Dr. Ra Townsend's office. The current ultrasound revealed a 1420 g fetus which equated to the 6th percentile for the assigned gestational age of 31 weeks 3 days. The BERT was 9.04 cm. Umbilical artery Doppler was 3.04. The biophysical profile findings revealed no breathing tone or trunk movements which was not surprising after the substantial dose of medication needed to resolve the maternal acute agitation. The heart rate continued above 200 and showed minimal variability without deceleration. There were no obvious uterine contractions. Following hydration the heart rate decreased into the 140s with moderate variability. There were no recurrent decelerations. Uterine activity was noted on the monitor occurring irregularly. The fundus remained soft and no appreciable contractions were palpable. Weeks Gestation:: 31 Para: 1 : 2 - Inpatient Certification I certify that the inpatient services were ordered in accordance with Medicare regulations governing the order. This includes certification that hospital inpatient services are reasonable and necessary and in the case of services not specified as inpatient-only under 42 CFR 419.22(n), that they are appropriately provided as inpatient services in accordance to with the 2-midnight benchmark under 43 CFR 412.3(e) Estimated Total Length of Stay (Days): 5 Plans for Post Hospital Care: Not yet determined Review of Systems unobtainable due to mental status PMFSH - History History Provided By: Patient - Medical History Medical History: Medical History (Last Reviewed 06/08/18 @ 23:50 by Joe Celis MD) Attention deficit disorder Posttraumatic stress disorder - Surgical History Surgical History: Surgical History (Last Updated 06/08/18 @ 23:50 by Joe Celis MD) H/O abdominoplasty H/O breast augmentation History of - Tobacco History Smoking Status: Unknown if ever smoked - Alcohol History How Often Do You Have a Drink Containing Alcohol: Unable to Obtain - Substance Use History Substance History: Unable to Obtain (The patient had prior toxicology performed showing cocaine and amphetamine use in 2017) - Immunization History Tetanus Immunization: Unable to Assess Hx Influenza Vaccine This Season: Unable to Assess Medications and Allergies Active Medications: Active Medications Acetaminophen (Tylenol) 650 mg PO Q6H PRN PRN Reason: PAIN 1-10 AND/OR FEVER >101F Al Hydroxide/Mg Hydroxide (Milk Of Magnesia Liq) 30 ml PO Q12H PRN PRN Reason: Mild Constipation Albuterol (Duoneb Neb (Prn)) 1 ampul NEB Q2HR NEB PRN PRN Reason: WHEEZING Betamethasone Acet/Betameth SodPhos ([place] Soluspan Inj) 12 mg IM Q24H [facility] Stop: 06/09/18 22:01 Last Admin: 06/08/18 22:53 Dose: 12 mg Bisacodyl (Dulcolax Supp) 10 mg RECTAL DAILY PRN PRN Reason: SEVERE CONSITIPATION Calcium Gluconate (Calcium Gluconate Inj) 1 gm IV.PUSH ONCE PRN PRN Reason: Magnesium Toxicity Chlorhexidine Gluconate (Chlorhexidine 2% Cloth) 3 pack TOPICAL DAILY@0400 SUE Stop: 06/14/18 03:59 Chlorhexidine Gluconate (Chlorhexidine 2% Cloth) 3 pack TOPICAL DAILY@0400 PRN PRN Reason: Extra cloth needed Stop: 06/14/18 03:59 Famotidine (Pepcid Pf Inj) 20 mg IV.PUSH Q12HR SUE Sodium Chloride (Ns Inj) 1,000 mls @ 154 mls/hr IV.CONT .Q6H30M SUE Last Admin: 06/08/18 23:14 Dose: 154 mls/hr Magnesium Sulfate (Magnesium Sulfate/Water 40 Gm/1000 Ml Premix) 40 gm in 1, 000 mls @ 50 mls/hr IV.CONT Q24H SUE Lactulose (Lactulose Liq) 30 ml PO DAILY PRN PRN Reason: SEVERE CONSITIPATION Lorazepam (Ativan Inj) 1 mg IV.PUSH Q1H PRN PRN Reason: Agitation/sedation Last Admin: 06/08/18 19:44 Dose: 1 mg Ondansetron HCl (Zofran Inj) 4 mg IV.PUSH Q6H PRN PRN Reason: NAUSEA OR VOMITING Senna/Docusate Sodium (Ora-Colace) 1 tab PO BID SUE Sennosides (Senokot) 17.2 mg PO Q12H PRN PRN Reason: Moderate Constipation Sodium Chloride (Ns Flush) 2 ml IV.FLUSH BID SUE Sodium Chloride (Ns Flush) 2 ml IV.FLUSH PRN PRN PRN Reason: FLUSH AFTER USING IV ACCESS Allergies Allergy/AdvReac Type Severity Reaction Status Date / Time No Allergy Information Allergy Unverified 06/08/18 19:35 Available Exam Vital signs: Vital Signs 06/08/18 19:48 06/08/18 20:17 06/08/18 20:30 Temperature 99.6 F Pulse Rate 130 H Respiratory Rate 30 H Blood Pressure 128/60 184/78 H Pulse Oximetry 99 100 100 06/08/18 20:55 06/08/18 21:10 06/08/18 21:15 Temperature Pulse Rate 120 H 115 H Respiratory Rate 28 H 24 Blood Pressure 118/59 L 107/53 L Pulse Oximetry 100 98 100 06/08/18 21:30 06/08/18 21:45 06/08/18 22:26 Temperature Pulse Rate 116 H 122 H 110 H Respiratory Rate 24 28 H 24 Blood Pressure 105/50 L 112/56 L 111/57 L Pulse Oximetry 100 100 Intake & Output 06/08/18 06/08/18 06/09/18 06:59 18:59 06:59 Weight 63.796 kg - Constitutional severe distress, diaphoretic, combative, agitated - Routine HEENT Exam Head: Present: normocephalic, atraumatic Eye: Present: PERRL - Routine Cardiovascular Exam Present: tachycardia - Routine Abdominal Exam Present: soft, normoactive bowel sounds. Absent: rigid - Routine Exam Patient deferred: perineal exam (Normal external female genitalia, vault is without significant discharge. The cervix is long and closed) - Routine Extremities Exam Absent: cyanosis, edema Results - Labs CBC & Chem 7: 06/08/18 20:15 06/08/18 20:15 Labs: Laboratory Results - last 24 hr 08/05/18 08/05/18 08/05/18 20:15 20:15 20:15 WBC 15.9 H RBC 3.79 L Hgb 10.9 L Hct 32.5 L MCV 85.9 MCH 28.7 MCHC 33.4 RDW 13.0 Plt Count 477 H MPV 8.7 Neut % (Auto) 77.9 H Lymph % (Auto) 15.2 [place] % (Auto) 6.3 Eos % (Auto) 0.1 Baso % (Auto) 0.5 Neut # (Auto) 12.4 H Lymph # (Auto) 2.4 [place] # (Auto) 1.0 H Eos # (Auto) 0.0 Baso # (Auto) 0.1 WBC Differential . Differential Comment Auto diff final PT 9.6 L INR 0.9 APTT 19.0 L Sodium Potassium Chloride Carbon Dioxide Anion Gap BUN Creatinine Estimated GFR POC Glucose Random Glucose Calcium Total Bilirubin AST ALT Alkaline Phosphatase Total Creatine Kinase 3729 H CK-MB (CK-2) 10.9 H CK-MB (CK-2) % 0.3 Troponin I 0.02 Total Protein Albumin Lipase Urine Color Urine Clarity Urine pH Ur Specific [place] Urine Protein Urine Glucose (UA) Urine Ketones Urine Occult Blood Urine Nitrate Urine Bilirubin Urine Urobilinogen Ur Leukocyte Esterase Ur Squamous Epith Cells Amorphous Sediment Urine Mucus Micro UA Comment Urine Culture Comments 06/08/18 06/08/18 06/08/18 20:15 22:23 22:25 WBC RBC Hgb Hct MCV MCH MCHC RDW Plt Count MPV Neut % (Auto) Lymph % (Auto) [place] % (Auto) Eos % (Auto) Baso % (Auto) Neut # (Auto) Lymph # (Auto) [place] # (Auto) Eos # (Auto) Baso # (Auto) WBC Differential Differential Comment PT INR APTT Sodium 142 Potassium 5.2 H Chloride 110 H Carbon Dioxide 15.9 L Anion Gap 16 H BUN 20 H Creatinine 1.33 H Estimated GFR 34 L POC Glucose 71 Random Glucose 55 L Calcium 9.3 Total Bilirubin 1.3 H AST 58 H ALT 29 Alkaline Phosphatase 99 Total Creatine Kinase CK-MB (CK-2) CK-MB (CK-2) % Troponin I Total Protein 7.9 Albumin 3.5 Lipase 138 Urine Color Yellow Urine Clarity Slightly cloudy Urine pH 5.5 Ur Specific [place] 1.018 Urine Protein 100 H Urine Glucose (UA) Negative Urine Ketones 40 H Urine Occult Blood Large H Urine Nitrate Negative Urine Bilirubin Negative Urine Urobilinogen 0.2 Ur Leukocyte Esterase Negative Ur Squamous Epith Cells 0-5 Amorphous Sediment Few H Urine Mucus Moderate H Micro UA Comment Cath-culture not ind Urine Culture Comments Cath-cult not ind Caprini VTE Risk Assessment Caprini VTE Risk Assessment: No/Low Risk (score <= 1) Caprini Risk Assessment Model: Point Value = 1 Point Value = 2 Point Value = 3 Point Value = 5 Age 41-60 Minor surgery BMI > 25 kg/m2 Swollen legs Varicose veins or History of unexplained or recurrent spontaneous Oral contraceptives or hormone replacement Sepsis (< 1 month) Serious lung disease, including pneumonia (< 1 month) Abnormal pulmonary function Acute myocardial infarction Congestive heart failure (< 1 month) History of inflammatory bowel disease Medical patient at bed rest Age 61-74 Arthroscopic surgery Major open surgery (> 45 min) Laparoscopic surgery (> 45 min) Malignancy Confined to bed (> 72 hours) Immobilizing plaster cast Central venous access Age >= 75 History of VTE Family history of VTE Factor V Leiden Prothrombin [id number] Lupus anticoagulant Anticardiolipin antibodies Elevated serum homocysteine Heparin-induced thrombocytopenia Other congenital or acquired thrombophilia Stroke (< 1 month) Elective arthroplasty Hip, pelvis, or leg fracture Acute spinal cord injury (< 1 month) Prophylaxis Regimen: Total Risk Factor Score Risk Level Prophylaxis Regimen 0-1 Low Early ambulation 2 Moderate Order ONE of the following: *Sequential Compression Device (SCD) *Heparin 5000 units SQ BID 3-4 Higher Order ONE of the following medications: *Heparin 5000 units SQ TID *Enoxaparin/Lovenox 40 mg SQ daily (WT < 150 kg, CrCl > 30 mL/min) *Enoxaparin/Lovenox 30 mg SQ daily (WT < 150 kg, CrCl > 10-29 mL/min) *Enoxaparin/Lovenox 30 mg SQ BID (WT < 150 kg, CrCl > 30 mL/min) AND/OR *Sequential Compression Device (SCD) 5 or more Highest Order ONE of the following medications: *Heparin 5000 units SQ TID (Preferred with Epidurals) *Enoxaparin/Lovenox 40 mg SQ daily (WT < 150 kg, CrCl > 30 mL/min) *Enoxaparin/Lovenox 30 mg SQ daily (WT < 150 kg, CrCl > 10-29 mL/min) *Enoxaparin/Lovenox 30 mg SQ BID (WT < 150 kg, CrCl > 30 mL/min) AND *Sequential Compression Device (SCD) Assessment and Plan - Plan Assessment: 31+ week intrauterine with probable substance abuse related medical /psychiatric crisis possibly secondary to cocaine #2 rhabdomyolysis Plan: With hydration the heart rate tracing moved from category 3 to category 1. Because of the high risk for placental abruption continuous monitoring is necessary. The biophysical profile score of 2 of 10 was likely contributed to by the significant effect of Ativan on the mother and fetus at the time of the ultrasound. Because the tachycardia was thought to be attributable to the transient effect of cocaine and it resolved with the current treatments the decision was made to not proceed with delivery. Betamethasone therapy for lung maturation and IV magnesium sulfate for neuro protection were initiated. The additional input of our car greaser team is greatly appreciated.
[2018-06-09] MEDS ORDERED: Sodium Bicarbonate 8.4% Inj 50 MEQ in Sodium Chloride 0.45 % Inj 950 ML IV.CONT SCH (01:00)
[2018-06-09 01:57] LABS: Baso % (Auto) 0.1 % (0.0-2.0); Hematocrit 30.5 % (35.0-46.0); Hemoglobin 10.1 gm/dL (11.6-15.3); Lymph # (Auto) 0.8 th/mm3 (1.0-4.8); Lymph % (Auto) 5.4 % (9.0-44.0); Mean Corpuscular HGB Conc 33.3 % (32.0-36.0); Mean Corpuscular Hemoglobin 28.8 pg (27.0-34.0); Mean Corpuscular Volume 86.7 fL (80.0-100.0); Mono # (Auto) 0.4 th/mm3 (0.0-0.9); Mono % (Auto) 3.1 % (0.0-8.0); Neut # (Auto) 12.8 th/mm3 (1.8-7.7); Neut % (Auto) 91.4 % (16.0-70.0); Platelet Count 353 th/mm3 (150-450); Red Blood Count 3.52 mil/mm3 (4.00-5.30); Red Cell Distribution Width 13.5 % (11.6-17.2)
[2018-06-09 02:06] LABS: Activated Partial Thrombo Time 23.1 sec (24.3-30.1); INR 0.9 Ratio; Prothrombin Time 9.5 sec (9.8-11.6)
[2018-06-09 02:24] LABS: Alanine Aminotransferase 82 U/L (10-53); Albumin 3.1 g/dL (3.4-5.0); Alkaline Phosphatase 86 U/L (45-117); Anion Gap 19 meq/L (5-15); Aspartate Aminotransferase 313 U/L (15-37); Blood Urea Nitrogen 17 mg/dL (7-18); Calcium 7.7 mg/dL (8.5-10.1); Carbon Dioxide 9.2 meq/L (21.0-32.0); Chloride 114 meq/L (98-107); Glomerular Filtration Rate 53 mL/min (>89); Glucose,Random 152 mg/dL (74-106); Magnesium 4.7 mg/dL (1.5-2.5); Phosphorus 4.5 mg/dL (2.5-4.9); Potassium 4.1 meq/L (3.5-5.1); Sodium 142 meq/L (136-145); Total Protein 6.7 g/dL (6.4-8.2); Troponin I 0.13 ng/mL (0.02-0.05)
[2018-06-09] MEDS ORDERED: Chlorhexidine Gluconate 2% 1 Pack (2 Cloths) TOPICAL PRN (04:00)
[2018-06-09 04:20] LABS: Hepatitis A IgM Antibody Nonreactive (Nonreactive); Hepatitits B Surface Antigen Nonreactive (Nonreactive)
[2018-06-09] MEDS: Chlorhexidine Gluconate 2% 1 Pack (2 Cloths) TOPICAL SCH (05:01)
[2018-06-09 05:07] LABS: Amphetamine Urine With Conf Pos (Neg); Benzodiazepine Urine With Conf Neg (Neg)
[2018-06-09] MEDS: Sodium Bicarbonate 8.4% Inj 150 MEQ in Dextrose 5% in Water Inj 850 ML IV.CONT SCH ×4 (10:45→18:46)
[2018-06-09] MEDS ORDERED: Haloperidol Inj 5 MG/ML Ampul IV.PUSH ONE (11:00)
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
[2018-06-09] MEDS: Senna/Docusate Sodium 8.6/50 MG Tablet PO SCH ×2 (12:42→20:25)
[2018-06-09] MEDS: Famotidine PF Inj 20 MG/2 ML Vial IV.PUSH SCH ×2 (12:46→20:25)
--- NOTE | 2018-06-09 16:34 | P.CONPSY ---
Provisional Diagnosis Admission Date: June 08, 2018 20:55 [place] I.: 1. Polysubstance abuse 2. Delirium, likely related to a substance but rule-out contribution from [facility] 3. Rule out PTSD [place] II.: Deferred History of Present Illness Service: Psychiatry Consult date: 06/09/18 Requesting Physician: Nickie Cordero Reason for Consult: "Came in hypertensive crisis, 33 weeks , poor judgement/insight" Primary Care Provider: UNKNOWN History of Present Illness: Ms. Zapata is a 32-year-old female with no reported previous psychiatric diagnoses who presents under a [place] act from [place] [employer] alleging "Cherrie injected what 'I thought was cocaine.' Cherrie also stated she took Xanax and Narcan." Patient has been admitted to the [facility] for management of rhabdomyolysis and acute kidney injury in the setting of intoxication. Reviewing the electronic medical record, I see no previous psychiatric contact within our system. Patient seen and examined. Chart reviewed. Case discussed with nursing staff. OB nurse is at the bedside monitoring patient's condition in that regard. On my examination today, the patient presents as mildly encephalopathic, see mental status testing below. She is in soft wrist restraints. She denies any suicidal or homicidal ideation, intent or plan. I can elicit no depressive or hypomanic/manic symptoms. She denies any significant anxiety. She does endorse a history of childhood trauma and describes some nightmares and avoidance related to this trauma. She endorses occasionally hearing someone calling to her. In context this symptom does not sound psychotic but may be trauma related. No other perceptual disturbances reported. She denies any command auditory hallucinations to hurt self/others. No delusional material elicited. Remainder of the psychiatric ROS is negative. No acute physical complaints. Mental status testing: Registration is 3 out of 3 and recall is 0 out of 3 at 3 minutes. She is oriented to person, June 2018 and [place] in [place] but gives the city as [place]. She is able to name 2 items and repeat a phrase. She gives WORLD backwards as DLOWKB. She struggles with vigilance A testing. Past psychiatric history: Patient may be an unreliable historian secondary to encephalopathy. The patient denies any history of psychiatric diagnosis. She denies any current psychiatric treatment but has seen psychiatry in the past. She also follows with a psychologist by the name of Dr. Lopez. When I ask if she has a history of psychiatric admissions she says that she was admitted in "2020." When I point out that it is 2018, she replies "that's what I'm saying, I need some help doc." She denies any history of suicide attempts. Family history: The patient reports that her mother has struggled with depression in the past. She reports that her maternal uncle completed suicide. Chemical dependency history: The patient reports that she typically uses cocaine. She says that the use of amphetamine was accidental. She denies any other substance use and in particular denies use of benzodiazepines, opiates, synthetic's. Social history: The patient resides in [place]. She is single. She has 1 son, no longer in her custody. She is college educated and reportedly working on her master's degree and adolescent psychology. She denies any history. Denies any legal history. Denies any access to guns or firearms. Denies any orthodoxy or spiritual beliefs. With the patient's permission, I have obtained collateral information from her grandmother Lilia Peoples at [phone]. Ms. Peoples reports that she saw the patient last week and she was reportedly doing fine. Ms. Peoples reports that the patient has no history of psychiatric issues other than substance use. She has had no psychiatric admissions that Ms. Peoples is aware of. She has no history of suicidal threats or attempts or violent threats or violent behavior. Ms. Peoples reports that patient's maternal aunt may have had some sort of psychiatric issues. She notes that the patient has a lengthy history of substance use issues and that the patient's son is no longer in patient's care as a consequence of the patient's substance use. I recommend to Ms. Peoples that the family pursue the [place] Act. Review of Systems All other systems reviewed negative except as stated in HPI (Limitation: Encephalopathy) PMFSH - History History Provided By: Patient - Medical History Medical History: Medical History (Last Reviewed 06/08/18 @ 23:50 by Joe Celis MD) Attention deficit disorder Posttraumatic stress disorder - Surgical History Surgical History: Surgical History (Last Updated 06/08/18 @ 23:50 by Joe Celis MD) H/O abdominoplasty H/O breast augmentation History of - Tobacco History Second Hand Smoke Exposure: No Tobacco Use In Past 30 Days: No Smoking Status: Cognitive impairment Tobacco Type: Cigarettes - Alcohol History How Often Do You Have a Drink Containing Alcohol: Unable to Obtain - Substance Use History Substance History: Unable to Obtain - Travel History History of Recent Travel: No Recent Travel in the [place] Within the Last 8 Weeks: No Recent Travel Out of the Country Within the Last 8 Weeks: No - Immunization History Tetanus Immunization: Unable to Assess Hx Influenza Vaccine This Season: Unable to Assess Medications and Allergies Active Medications: Active Medications Acetaminophen (Tylenol) 650 mg PO Q6H PRN PRN Reason: PAIN 1-10 AND/OR FEVER >101F Al Hydroxide/Mg Hydroxide (Milk Of Magndaina Liq) 30 ml PO Q12H PRN PRN Reason: Mild Constipation Albuterol (Duoneb Neb (Prn)) 1 ampul NEB Q2HR NEB PRN PRN Reason: WHEEZING Betamethasone Acet/Betameth SodPhos (Celestone Soluspan Inj) 12 mg IM Q24H [facility] Stop: 06/09/18 22:01 Last Admin: 06/08/18 22:53 Dose: 12 mg Bisacodyl (Dulcolax Supp) 10 mg RECTAL DAILY PRN PRN Reason: SEVERE CONSITIPATION Calcium Gluconate (Calcium Gluconate Inj) 1 gm IV.PUSH ONCE PRN PRN Reason: Magnesium Toxicity Chlorhexidine Gluconate (Chlorhexidine 2% Cloth) 3 pack TOPICAL DAILY@0400 [facility] Stop: 06/14/18 03:59 Last Admin: 06/09/18 05:01 Dose: 3 pack Chlorhexidine Gluconate (Chlorhexidine 2% Cloth) 3 pack TOPICAL DAILY@0400 PRN PRN Reason: Extra cloth needed Stop: 06/14/18 03:59 Famotidine (Pepcid Pf Inj) 20 mg IV.PUSH Q12HR [facility] Last Admin: 06/09/18 12:46 Dose: 20 mg Magnesium Sulfate (Magnesium Sulfate/Water 40 Gm/1000 Ml Premix) 40 gm in 1, 000 mls @ 50 mls/hr IV.CONT Q24H [facility] Last Admin: 06/08/18 23:43 Dose: 2 gm/hr, 50 mls/hr Sodium Bicarbonate 150 meq/ (Dextrose) 1,000 mls @ 125 mls/hr IV.CONT .Q8H [facility] Last Admin: 06/09/18 10:45 Dose: 125 mls/hr Lactulose (Lactulose Liq) 30 ml PO DAILY PRN PRN Reason: SEVERE CONSITIPATION Lorazepam (Ativan Inj) 1 mg IV.PUSH Q1H PRN PRN Reason: Agitation/sedation Last Admin: 06/09/18 07:27 Dose: 1 mg Ondansetron HCl (Zofran Inj) 4 mg IV.PUSH Q6H PRN PRN Reason: NAUSEA OR VOMITING Senna/Docusate Sodium (Ora-Colace) 1 tab PO BID [facility] Last Admin: 06/09/18 12:42 Dose: Not Given Sennosides (Senokot) 17.2 mg PO Q12H PRN PRN Reason: Moderate Constipation Sodium Chloride (Ns Flush) 2 ml IV.FLUSH BID [facility] Last Admin: 06/09/18 12:41 Dose: Not Given Sodium Chloride (Ns Flush) 2 ml IV.FLUSH PRN PRN PRN Reason: FLUSH AFTER USING IV ACCESS Allergies Allergy/AdvReac Type Severity Reaction Status Date / Time No Allergy Information Allergy Unverified 06/08/18 19:35 Available Home Medications Medication Instructions Recorded Confirmed Type Unable to Obtain Home Meds 06/09/18 06/09/18 History Exam Vital signs: Vital Signs 06/08/18 19:48 06/08/18 20:17 06/08/18 20:30 Temperature 99.6 F Pulse Rate 130 H Respiratory Rate 30 H Blood Pressure 128/60 184/78 H Pulse Oximetry 99 100 100 06/08/18 20:55 06/08/18 21:10 06/08/18 21:15 Temperature Pulse Rate 120 H 115 H Respiratory Rate 28 H 24 Blood Pressure 118/59 L 107/53 L Pulse Oximetry 100 98 100 06/08/18 21:30 06/08/18 21:45 06/08/18 22:26 Temperature Pulse Rate 116 H 122 H 110 H Respiratory Rate 24 28 H 24 Blood Pressure 105/50 L 112/56 L 111/57 L Pulse Oximetry 100 100 06/08/18 23:15 06/08/18 23:20 06/08/18 23:35 Temperature Pulse Rate 108 H 119 H 110 H Respiratory Rate 26 H 28 H 24 Blood Pressure 138/64 138/62 129/71 Pulse Oximetry 99 100 99 06/09/18 00:00 06/09/18 03:35 06/09/18 04:00 Temperature 98.1 F 97.1 F L Pulse Rate 117 H 100 H 100 H Respiratory Rate 34 H 34 H Blood Pressure 117/61 110/56 L Pulse Oximetry 100 96 06/09/18 05:34 06/09/18 07:58 06/09/18 08:00 Temperature 97.6 F Pulse Rate 101 H 107 H Respiratory Rate 36 H Blood Pressure 90/65 L Pulse Oximetry 98 100 06/09/18 09:00 06/09/18 10:00 06/09/18 11:00 Temperature Pulse Rate 119 H 124 H 104 H Respiratory Rate 28 H Blood Pressure 131/87 110/56 L Pulse Oximetry 06/09/18 12:00 06/09/18 13:00 06/09/18 15:00 Temperature 98.0 F Pulse Rate 101 H 98 H 92 H Respiratory Rate 24 Blood Pressure 117/62 Pulse Oximetry 96 Intake & Output 06/08/18 06/09/18 06/09/18 18:59 06:59 18:59 Intake Total 2100 / 2100 965 / 965 Output Total 2450 / 2450 Balance -350 / -350 965 / 965 Weight 82 kg Intake: IV 2099 / 2100 965 / 965 Sodium Bicarbonate 8.4% Inj 50 965 / 965 MEQ In 1/2 Normal Saline Inj 950 ML @ 125 mls/hr IV.CONT . Q8H [facility] Rx#:[id number] Output: Urine Amount (Catheter) 2450 / 2450 Indwelling Urethral Catheter 2450 / 2450 Other: Weight On Admission 82 kg Narrative: Physical examination completed by primary team. On my examination today, the patient appears to be in no acute physical distress. No motor abnormalities noted. In particular no hand tremor, no diaphoresis, no other signs of GABAergic withdrawal. No other signs of withdrawal noted. Labs and vital signs reviewed: Laboratory Tests 06/08/18 06/08/18 06/09/18 20:15 22:25 01:39 WBC Hgb Plt Count PT 9.5 L INR 0.9 APTT 23.1 L D Sodium Potassium Chloride Carbon Dioxide BUN Creatinine Lactic Acid AST ALT Alkaline Phosphatase Total Creatine Kinase 3729 H Ur Amphetamine Screen Pos H RPR Hepatitis A IgM Ab Hep Bs Antigen Hep B Core IgM Ab Hep C IgG Ab HIV 1&2 Ab/P24 Ag 4thGn 08/06/18 08/06/18 08/06/18 01:39 01:39 01:39 WBC 14.0 H Hgb 10.1 L Plt Count 353 PT INR APTT Sodium 142 Potassium 4.1 D Chloride 114 H Carbon Dioxide 9.2 L BUN 17 Creatinine 0.91 Lactic Acid 0.7 AST 313 H ALT 82 H Alkaline Phosphatase 86 Total Creatine Kinase Ur Amphetamine Screen RPR Hepatitis A IgM Ab Hep Bs Antigen Hep B Core IgM Ab Hep C IgG Ab HIV 1&2 Ab/P24 Ag 4thGn 18 06/09/18 01:39 01:39 WBC Hgb Plt Count PT INR APTT Sodium Potassium Chloride Carbon Dioxide BUN Creatinine Lactic Acid AST ALT Alkaline Phosphatase Total Creatine Kinase Ur Amphetamine Screen RPR Nonreactive Hepatitis A IgM Ab Nonreactive Hep Bs Antigen Nonreactive Hep B Core IgM Ab Nonreactive Hep C IgG Ab Nonreactive HIV 1&2 Ab/P24 Ag 4thGn Nonreactive No head imaging on file. Mental Status Examination Appearance: Disheveled Consciousness: Alert Orientation: Person, Place, Date/Time Motor Activity: Other (Motor exam as above) Speech: Unremarkable Language: Other (Somewhat rambling) Fund of Knowledge: Adequate Attention and Concentration: Easily distracted Memory: Impaired Mood: Other (Denies issues with mood) Affect: Blunt Thought Process & Associations: Circumstantial Thought Content: Appropriate Hallucination Type: None (None presently. See above.) Delusion Type: None Suicidal Ideation: No Suicidal Plan: No Suicidal Intention: No Homicidal Ideation: No Homicidal Plan: No Homicidal Intention: No Mental Status Exam Remarks: Insight and judgment are poor at the present moment. Assessment and Plan - Assessment (1) Polysubstance abuse Code(s): F19.10 - Other psychoactive substance abuse, uncomplicated Status: Acute (2) Delirium Code(s): R41.0 - Disorientation, unspecified Status: Acute - Plan Plan: 32-year-old female with psychiatric history as detailed above who is presently admitted to the [facility] under a [place] act. Psychiatry is consulted for reasons as noted above. On my examination today, the patient presents as mildly encephalopathic, and I do suspect that this is related to resolving substance intoxication although there may be a contribution of delirium from her acute medical issues including rhabdomyolysis and acute kidney injury. She does describe some symptomatology that may be consistent with an underlying diagnosis of posttraumatic stress disorder, although I do not suspect that this is significantly contributing to her current presentation, nor would I institute pharmacotherapy for management of this issue acutely. I think it is prudent to leave the Landon act in place for now and reevaluate the patient when she is clearer thinking. I do suspect ultimately the Landon act will be lifted as substance use issues are specifically excluded from the Landon act definition of mental illness. In its place, I will likely institute a physician's certificate for emergency admission to chemical dependency treatment facility with plans for transfer to [facility] once medically cleared. I will defer workup and management of patient's encephalopathy to the primary team, although I am happy to assist with these issues if needed. Case d/w RN. Thank you very much for this consultation. I will follow up no later than Saturday. Please call or page with questions. Justification for Continued Inpatient Stay: Per primary team. Discharge Planning: L[place] Act remains in place for now. However, patient will likely ultimately not require general inpatient psychiatric hospitalization. See above.
[2018-06-09 18:50] LABS: Alanine Aminotransferase 154 U/L (10-53); Albumin 2.8 g/dL (3.4-5.0); Anion Gap 16 meq/L (5-15); Aspartate Aminotransferase 440 U/L (15-37); Blood Urea Nitrogen 8 mg/dL (7-18); Calcium 6.4 mg/dL (8.5-10.1); Carbon Dioxide 11.4 meq/L (21.0-32.0); Chloride 110 meq/L (98-107); Glomerular Filtration Rate Greater Than 89 mL/min (>89); Glucose,Random 158 mg/dL (74-106); Potassium 3.8 meq/L (3.5-5.1); Sodium 137 meq/L (136-145)
[2018-06-09] MEDS ORDERED: Haloperidol Inj 5 MG/ML Ampul IV.PUSH PRN (19:00)
[2018-06-09 19:01] LABS: Alkaline Phosphatase 82 U/L (45-117); Total Protein 6.2 g/dL (6.4-8.2)
[2018-06-09 20:13] LABS: Creatine Kinase 39528 U/L (26-192)
[2018-06-09] MEDS: Mag Sulf/Water 40 gm/1000 ml 40 GM/1,000 ML BAG IV.CONT SCH (20:30)
[2018-06-09 20:32] LABS: CKMB Percent 0.3 % (0.0-4.0); Creatine Kinase MB 106.1 ng/mL (0.5-3.6)
[2018-06-09] MEDS: Betamethasone Sod Phos/Acetate Inj 30 MG/5 ML Vial IM SCH (21:31)
[2018-06-09] MEDS ORDERED: Calcium Chloride Inj 2 GM in Sodium Chlor 0.9% Inj 100 ML IV.SIG ONE (22:00)
[2018-06-10] MEDS: Sodium Bicarbonate 8.4% Inj 150 MEQ in Dextrose 5% in Water Inj 850 ML IV.CONT SCH ×2 (02:52)
[2018-06-10 06:11] LABS: Hematocrit 24.7 % (35.0-46.0); Hemoglobin 8.7 gm/dL (11.6-15.3); Lymph # (Auto) 0.7 th/mm3 (1.0-4.8); Lymph % (Auto) 5.6 % (9.0-44.0); Mean Corpuscular Hemoglobin 29.5 pg (27.0-34.0); Mean Corpuscular Volume 84.4 fL (80.0-100.0); Mean Platelet Volume 8.1 fL (7.0-11.0); Mono # (Auto) 0.2 th/mm3 (0.0-0.9); Mono % (Auto) 1.6 % (0.0-8.0); Neut # (Auto) 11.1 th/mm3 (1.8-7.7); Neut % (Auto) 92.8 % (16.0-70.0); Platelet Count 300 th/mm3 (150-450); Red Blood Count 2.93 mil/mm3 (4.00-5.30); Red Cell Distribution Width 13.5 % (11.6-17.2); White Blood Count 11.9 th/mm3 (4.0-11.0)
[2018-06-10 06:58] LABS: Alanine Aminotransferase 132 U/L (10-53); Albumin 2.6 g/dL (3.4-5.0); Anion Gap 10 meq/L (5-15); Aspartate Aminotransferase 274 U/L (15-37); Blood Urea Nitrogen 7 mg/dL (7-18); Carbon Dioxide 21.5 meq/L (21.0-32.0); Chloride 107 meq/L (98-107); Glomerular Filtration Rate Greater Than 89 mL/min (>89); Glucose,Random 169 mg/dL (74-106); Magnesium 2.7 mg/dL (1.5-2.5); Phosphorus 1.8 mg/dL (2.5-4.9); Potassium 3.4 meq/L (3.5-5.1); Sodium 138 meq/L (136-145)
[2018-06-10 07:21] LABS: Alkaline Phosphatase 72 U/L (45-117); Total Protein 5.6 g/dL (6.4-8.2)
[2018-06-10] MEDS ORDERED: Potassium Phosphate 500 MG Soluble Tablet PO PRN ×2 (07:38)
[2018-06-10] MEDS ORDERED: Sodium Phosphate Inj 30 MMOL in Sodium Chlor 0.9% Inj 250 ML IV.SIG PRN (07:38)
[2018-06-10] MEDS ORDERED: Magnesium Sulfate Inj 2 GM in Sodium Chlor 0.9% Inj 96 ML IV.SIG PRN (07:38)
[2018-06-10] MEDS ORDERED: Magnesium Sulfate Inj 4 GM in Sodium Chlor 0.9% Inj 92 ML IV.SIG PRN (07:38)
[2018-06-10] MEDS ORDERED: Potassium Chlor 40 mEq Premix 40 MEQ/100 ML PIGGYBACK IV.SIG PRN ×2 (07:38)
[2018-06-10] MEDS ORDERED: Potassium Chlor 20 mEq Premix 20 MEQ/100 ML PIGGYBACK IV.SIG PRN ×2 (07:38)
[2018-06-10] MEDS ORDERED: Magnesium Oxide 400 MG Tablet PO PRN (07:38)
[2018-06-10] MEDS ORDERED: Potassium Chloride 25 MEQ Effervescent Tablet PO PRN (07:38)
--- NOTE | 2018-06-10 07:44 | P.PN ---
Subjective Interval history: f/u encephalopathy. Patient is awake and oriented he denies hallucinations. Discussed with nursing, may transfer to floor later if she remains stable Physical Exam Vital signs: Vital Signs 06/09/18 07:58 06/09/18 08:00 06/09/18 09:00 Temperature 97.6 F Pulse Rate 107 H 119 H Respiratory Rate 36 H Blood Pressure 90/65 L Pulse Oximetry 98 100 06/09/18 10:00 06/09/18 11:00 06/09/18 11:54 Temperature Pulse Rate 124 H 104 H 106 H Respiratory Rate 28 H Blood Pressure 131/87 110/56 L Pulse Oximetry 96 06/09/18 12:00 06/09/18 13:00 06/09/18 14:00 Temperature 98.0 F Pulse Rate 104 H 98 H 96 H Respiratory Rate 24 Blood Pressure 117/62 111/57 L 113/58 L Pulse Oximetry 96 96 96 06/09/18 15:00 06/09/18 16:00 06/09/18 17:00 Temperature 98.0 F Pulse Rate 93 H 91 H 87 Respiratory Rate 24 Blood Pressure 111/57 L 110/58 L 106/64 Pulse Oximetry 97 97 97 06/09/18 18:00 06/09/18 19:00 06/09/18 19:19 Temperature Pulse Rate 87 92 H Respiratory Rate Blood Pressure 109/62 83/59 L Pulse Oximetry 96 95 96 06/09/18 20:00 06/09/18 21:00 06/09/18 22:00 Temperature 97.6 F Pulse Rate 91 H 88 87 Respiratory Rate 18 Blood Pressure 112/59 L 109/60 103/61 Pulse Oximetry 94 L 96 96 06/09/18 23:00 06/10/18 00:00 06/10/18 01:00 Temperature 97.8 F Pulse Rate 84 85 91 H Respiratory Rate 20 Blood Pressure 106/64 110/63 111/62 Pulse Oximetry 96 95 96 06/10/18 02:00 06/10/18 03:00 06/10/18 03:18 Temperature Pulse Rate 86 84 Respiratory Rate Blood Pressure 103/67 109/62 Pulse Oximetry 95 96 96 06/10/18 04:00 06/10/18 05:00 06/10/18 06:00 Temperature 97.9 F Pulse Rate 83 90 97 H Respiratory Rate 19 Blood Pressure 105/58 L 109/61 117/58 L Pulse Oximetry 94 L 97 97 Intake & Output 06/09/18 06/10/18 06/10/18 18:59 06:59 18:59 Intake Total 2445 / 2445 2725 / 2725 Output Total 2049 1225 / 1225 Balance 395 / 395 1500 / 1500 Weight 83 kg Intake: IV 1964 / 1964 2245 / 2245 Magnesium Sulfate/Water 40 gm/ 1125 / 1125 1000 ml Premix 40 gm In 1,000 ml @ 2 GM/HR 50 mls/hr IV.CONT Q24H [facility] Rx#:[id number] Sodium Bicarbonate 8.4% Inj 150 1000 / 1000 1000 / 1000 MEQ In D5W Inj 850 ML @ 125 mls/hr IV.CONT .Q8H [facility] Rx#: [id number] Sodium Bicarbonate 8.4% Inj 50 965 / 965 MEQ In 1/2 Normal Saline Inj 950 ML @ 125 mls/hr IV.CONT . Q8H [facility] Rx#:[id number] Calcium Chloride Inj 2 GM In NS 120 / 120 Inj 100 ML @ 120 mls/hr IV.SIG ONCE ONE Rx#:[id number] Oral 480 / 480 480 / 480 Output: Urine Amount (Catheter) 2049 1225 / 1225 Indwelling Urethral Catheter 2049 1225 / 1225 Other: # Bowel Movements 0 Narrative: HEENT/Neuro: No pallor or icterus, tongue dry, JUNIOR, Awake alert oriented 3, nonfocal grossly, moving all 4 extremities Neck: No JVD Chest/pulmonary: CTA bilaterally Cardiovascular: S1-S2 regular no gallop or murmur GI/abdomen: Soft, nontender, bowel sounds present. Uterus enlarged on palpation (). monitoring in progress Extremities: Warm bilaterally, no edema Awake and alert oriented clam and cooperative - Urinary Catheter Management Indwelling Urethral Catheter Cath placed during this visit: yes Reason for continuing: Other continuation reason Insertion date: 06/08/18 Insertion time: 22:00 Results - Labs CBC & Chem 7: 06/10/18 05:01 06/10/18 05:01 Laboratory Results - last 24 hr 06/09/18 06/09/18 06/09/18 01:39 17:50 17:50 WBC RBC Hgb Hct MCV MCH MCHC RDW Plt Count MPV Neut % (Auto) Lymph % (Auto) [place] % (Auto) Eos % (Auto) Baso % (Auto) Neut # (Auto) Lymph # (Auto) [place] # (Auto) Eos # (Auto) Baso # (Auto) WBC Differential Differential Comment Sodium 137 Potassium 3.8 Chloride 110 H Carbon Dioxide 11.4 L Anion Gap 16 H BUN 8 Creatinine 0.63 Estimated GFR Greater than 89 POC Glucose Random Glucose 158 H Lactic Acid 0.8 Calcium 6.4 L* D Prot Corrected Calcium 6.8 L* Phosphorus Magnesium Total Bilirubin 0.7 AST 440 H ALT 154 H Alkaline Phosphatase 82 Total Creatine Kinase 00466 H CK-MB (CK-2) 106.1 H CK-MB (CK-2) % 0.3 Total Protein 6.2 L Albumin 2.8 L RPR Nonreactive 06/10/18 06/10/18 06/10/18 01:05 05:01 05:01 WBC 11.9 H RBC 2.93 L Hgb 8.7 L Hct 24.7 L MCV 84.4 MCH 29.5 MCHC 35.0 RDW 13.5 Plt Count 300 MPV 8.1 Neut % (Auto) 92.8 H Lymph % (Auto) 5.6 L Eagle % (Auto) 1.6 Eos % (Auto) 0.0 Baso % (Auto) 0.0 Neut # (Auto) 11.1 H Lymph # (Auto) 0.7 L [place] # (Auto) 0.2 Eos # (Auto) 0.0 Baso # (Auto) 0.0 WBC Differential . Differential Comment Auto diff final Sodium 138 Potassium 3.4 L Chloride 107 Carbon Dioxide 21.5 D Anion Gap 10 BUN 7 Creatinine 0.47 L Estimated GFR Greater than 89 POC Glucose 173 H Random Glucose 169 H Lactic Acid Calcium 7.0 L* Prot Corrected Calcium 7.8 L D Phosphorus 1.8 L D Magnesium 2.7 H D Total Bilirubin 0.4 AST 274 H ALT 132 H Alkaline Phosphatase 72 Total Creatine Kinase CK-MB (CK-2) CK-MB (CK-2) % Total Protein 5.6 L D Albumin 2.6 L RPR - Procedures none Assessment and Plan - Plan Toxic encephalopathy. Improving -UDS with Amphetamine -Ativan as needed. Given Ativan 4 mg IV and Haldol 5 mg IV for severe agitation earlier. Psychiatry consulted. Patient is [place] acted. -Ct telemetry -Neuro checks per unit protocol -IV fluid hydration IUP 31 weeks -Dr. Celis -MANAGER [employer]ALENT MANAGEMENT greatly appreciated -high risk for placental abruption -continuous monitoring -Betamethasone therapy for lung maturation -IV magnesium sulfate for neuro protection Rhabdomyolysis with abnormal LFts Metabolic acidosis -Changed to half NS with 1 amp of bicarb 2/2 hyperglycemia check A1c -Frequent CPKs Leukocytosis. Improving. Lactic acid within normal limits. Blood cultures pending Anemia secondary to dilution. No gross bleeding acute kidney injury with hypokalemia, hypophosphatemia and hypocalcemia. Improving on IV hydration. Replace electrolytes per protocol DVT GI prophylaxis -Teds SCDs -Early aggressive mobilization Discharge Planning: under BA per Psych will initiate MA on dc
--- NOTE | 2018-06-10 08:06 | P.PNPSY ---
Subjective Remarks: Patient seen and examined. Chart reviewed. Case discussed with nursing staff. Patient was reportedly calm overnight but somewhat agitated this morning and required Haldol. Patient is consequently somewhat somnolent on my examination this morning. I cannot get reliable mental status exam as a result. Patient wants to leave but remains under BA. She reports that she has been abusing amphetamine lately "now that the coke is so washed down." No acute physical complaints. Laboratory Tests 06/10/18 06/10/18 05:01 05:01 WBC 11.9 H Hgb 8.7 L Plt Count 300 Sodium 138 Potassium 3.4 L Chloride 107 Carbon Dioxide 21.5 D BUN 7 Creatinine 0.47 L AST 274 H ALT 132 H Alkaline Phosphatase 72 Total Creatine Kinase 83312 H Labs reviewed. CK is decreasing from a peak of ~39,000 Review of Systems other (Limited secondary to sedation) Mental Status Examination Appearance: Disheveled Consciousness: Somnolent Orientation: Person (At least) Motor Activity: Other (No motor abnormalities noted. Out of restraints.) Speech: Other (Somewhat slurred) Language: Other (Limited sample) Mood: Other (Presently calm) Affect: Flat Thought Process & Associations: Other (Limited sample) Hallucination Type: None (Does not appear internally stimulated) Delusion Type: None (Limited sample but no delusional material elicited) Suicidal Ideation: No (No SI voiced) Homicidal Ideation: No (No HI voiced) Insight: Poor Judgment: Poor Assessment and Plan - Assessment (1) Polysubstance abuse Code(s): F19.10 - Other psychoactive substance abuse, uncomplicated Status: Acute (2) Delirium Code(s): R41.0 - Disorientation, unspecified Status: Acute - Plan Plan: Still unable to obtain reliable exam of patient, today secondary to somnolence following Haldol p.r.n.. [place] Act remains in place for now, although likely patient will ultimately need P.C. for chem dep treatment. I will continue to follow along. Case d/w RN. Justification for Continued Inpatient Stay: Per primary team
[2018-06-10 08:16] LABS: CKMB Percent 0.3 % (0.0-4.0); Creatine Kinase MB 53.8 ng/mL (0.5-3.6)
--- NOTE | 2018-06-10 08:52 | P.PNOB ---
Objective Vital Signs/I&O: Vital Signs 06/09/18 09:00 06/09/18 10:00 06/09/18 11:00 Temperature Pulse Rate 119 H 124 H 104 H Respiratory Rate 28 H Blood Pressure 131/87 110/56 L Pulse Oximetry 06/09/18 11:54 06/09/18 12:00 06/09/18 13:00 Temperature 98.0 F Pulse Rate 106 H 104 H 98 H Respiratory Rate 24 Blood Pressure 117/62 111/57 L Pulse Oximetry 96 96 96 06/09/18 14:00 06/09/18 15:00 06/09/18 16:00 Temperature 98.0 F Pulse Rate 96 H 93 H 91 H Respiratory Rate 24 Blood Pressure 113/58 L 111/57 L 110/58 L Pulse Oximetry 96 97 97 06/09/18 17:00 06/09/18 18:00 06/09/18 19:00 Temperature Pulse Rate 87 87 92 H Respiratory Rate Blood Pressure 106/64 109/62 83/59 L Pulse Oximetry 97 96 95 06/09/18 19:19 06/09/18 20:00 06/09/18 21:00 Temperature 97.6 F Pulse Rate 91 H 88 Respiratory Rate 18 Blood Pressure 112/59 L 109/60 Pulse Oximetry 96 94 L 96 06/09/18 22:00 06/09/18 23:00 06/10/18 00:00 Temperature 97.8 F Pulse Rate 87 84 85 Respiratory Rate 20 Blood Pressure 103/61 106/64 110/63 Pulse Oximetry 96 96 95 06/10/18 01:00 06/10/18 02:00 06/10/18 03:00 Temperature Pulse Rate 91 H 86 84 Respiratory Rate Blood Pressure 111/62 103/67 109/62 Pulse Oximetry 96 95 96 06/10/18 03:18 06/10/18 04:00 06/10/18 05:00 Temperature 97.9 F Pulse Rate 83 90 Respiratory Rate 19 Blood Pressure 105/58 L 109/61 Pulse Oximetry 96 94 L 97 06/10/18 06:00 06/10/18 08:04 Temperature Pulse Rate 97 H Respiratory Rate Blood Pressure 117/58 L Pulse Oximetry 97 96 Intake & Output 06/09/18 06/10/18 06/10/18 18:59 06:59 18:59 Intake Total 2445 / 2445 2725 / 2725 Output Total 2050 / 2050 1225 / 1225 Balance 395 / 395 1500 / 1500 Weight 83 kg Intake: IV 1964 / 1964 2245 / 2245 Magnesium Sulfate/Water 40 gm/ 1125 / 1125 1000 ml Premix 40 gm In 1,000 ml @ 2 GM/HR 50 mls/hr IV.CONT Q24H [facility] Rx#:[id number] Sodium Bicarbonate 8.4% Inj 150 1000 / 1000 1000 / 1000 MEQ In D5W Inj 850 ML @ 125 mls/hr IV.CONT .Q8H [facility] Rx#: [id number] Sodium Bicarbonate 8.4% Inj 50 965 / 965 MEQ In 1/2 Normal Saline Inj 950 ML @ 125 mls/hr IV.CONT . Q8H [facility] Rx#:[id number] Calcium Chloride Inj 2 GM In NS 120 / 120 Inj 100 ML @ 120 mls/hr IV.SIG ONCE ONE Rx#:[id number] Oral 480 / 480 480 / 480 Output: Urine Amount (Catheter) 2049 1225 / 1225 Indwelling Urethral Catheter 2049 1225 / 1225 Other: # Bowel Movements 0 Result Diagrams: 06/10/18 05:01 06/10/18 05:01 Objective Remarks: GENERAL: Well-nourished, well-developed patient. CARDIOVASCULAR: Regular rate and rhythm without murmurs, gallops, or rubs. RESPIRATORY: Breath sounds equal bilaterally. No accessory muscle use. ABDOMEN/GI: Abdomen soft, non-tender. Fundus: Firm, non-tender at umbilicus. GENITOURINARY: Light to moderate bleeding. EXTREMITIES: No cyanosis or edema, non-tender, without signs of DVT. Medications and IVs: Active Medications Acetaminophen (Tylenol) 650 mg PO Q6H PRN PRN Reason: PAIN 1-10 AND/OR FEVER >101F Al Hydroxide/Mg Hydroxide (Milk Of Magnesia Liq) 30 ml PO Q12H PRN PRN Reason: Mild Constipation Albuterol (Duoneb Neb (Prn)) 1 ampul NEB Q2HR NEB PRN PRN Reason: WHEEZING Bisacodyl (Dulcolax Supp) 10 mg RECTAL DAILY PRN PRN Reason: SEVERE CONSITIPATION Calcium Gluconate (Calcium Gluconate Inj) 1 gm IV.PUSH ONCE PRN PRN Reason: Magnesium Toxicity Chlorhexidine Gluconate (Chlorhexidine 2% Cloth) 3 pack TOPICAL DAILY@0400 [facility] Stop: 06/14/18 03:59 Last Admin: 06/09/18 05:01 Dose: 3 pack Chlorhexidine Gluconate (Chlorhexidine 2% Cloth) 3 pack TOPICAL DAILY@0400 PRN PRN Reason: Extra cloth needed Stop: 06/14/18 03:59 Haloperidol Lactate (Haldol Inj) 5 mg IV.PUSH Q6H PRN PRN Reason: AGITATION Last Admin: 06/10/18 06:08 Dose: 5 mg Sodium Bicarbonate 150 meq/ (Dextrose) 1,000 mls @ 125 mls/hr IV.CONT .Q8H [facility] Last Admin: 06/10/18 02:52 Dose: 125 mls/hr Magnesium Sulfate Inj 4 gm/ (Sodium Chloride) 100 mls @ 50 mls/hr IV.SIG UNSCH PRN PRN Reason: For Magnesium 0.9 - 1.1 mg/dL Magnesium Sulfate Inj 2 gm/ (Sodium Chloride) 100 mls @ 50 mls/hr IV.SIG UNSCH PRN PRN Reason: For Magnesium 1.2 - 1.6 mg/dL Potassium Chloride (Kcl 40 Meq Premix Inj) 40 meq in 100 mls @ 25 mls/hr IV.SIG Q2H PRN PRN Reason: For Potassium 2.8 - 3.2 mEq/L Potassium Chloride (Kcl 20 Meq Premix Inj) 20 meq in 100 mls @ 50 mls/hr IV.SIG Q2H PRN PRN Reason: For Potassium 3.3 - 3.5 mEq/L Potassium Chloride (Kcl 40 Meq Premix Inj) 40 meq in 100 mls @ 25 mls/hr IV.SIG UNSCH PRN PRN Reason: For Potassium 3.3 - 3.5 mEq/L Potassium Chloride (Kcl 20 Meq Premix Inj) 20 meq in 100 mls @ 50 mls/hr IV.SIG Q2H PRN PRN Reason: For Potassium 2.8 - 3.2 mEq/L Potassium Phosphate 30 mmol/ (Sodium Chloride) 260 mls @ 42 mls/hr IV.SIG UNSCH PRN PRN Reason: SEE LABEL COMMENTS Sodium Phosphate 30 mmol/ (Sodium Chloride) 260 mls @ 42 mls/hr IV.SIG UNSCH PRN PRN Reason: For Phosphorus < 2.5 mg/dL Lactulose (Lactulose Liq) 30 ml PO DAILY PRN PRN Reason: SEVERE CONSITIPATION Lorazepam (Ativan Inj) 1 mg IV.PUSH Q1H PRN PRN Reason: Agitation/sedation Last Admin: 06/09/18 07:27 Dose: 1 mg Magnesium Oxide (Mag-Ox) 800 mg PO UNSCH PRN PRN Reason: For Magnesium 1.2 - 1.6 mg/dL Ondansetron HCl (Zofran Inj) 4 mg IV.PUSH Q6H PRN PRN Reason: NAUSEA OR VOMITING Potassium Bicarb/Potassium Chloride (K-Lyte Cl Eff) 50 meq PO UNSCH PRN PRN Reason: For Potassium 3.3 - 3.5 mEq/L Potassium Phosphate (K-Phos Original) 2,000 mg PO Q4H PRN PRN Reason: Phosphorus Less Than 2.5 mg/dL Potassium Phosphate (K-Phos Original) 2,000 mg PO UNSCH PRN PRN Reason: SEE LABEL COMMENTS Sennosides (Senokot) 17.2 mg PO Q12H PRN PRN Reason: Moderate Constipation Sodium Chloride (Ns Flush) 2 ml IV.FLUSH BID [facility] Last Admin: 06/09/18 20:26 Dose: 2 ml Sodium Chloride (Ns Flush) 2 ml IV.FLUSH PRN PRN PRN Reason: FLUSH AFTER USING IV ACCESS Assessment and Plan - Plan Assessment: 31+ week intrauterine with probable substance abuse related medical /psychiatric crisis possibly secondary to cocaine #2 rhabdomyolysis Plan: With hydration the heart rate tracing moved from category 3 to category 1. Because of the high risk for placental abruption continuous monitoring is necessary. The biophysical profile score of 2 of 10 was likely contributed to by the significant effect of Ativan on the mother and fetus at the time of the ultrasound. Because the tachycardia was thought to be attributable to the transient effect of cocaine and it resolved with the current treatments the decision was made to not proceed with delivery. Betamethasone therapy for lung maturation and IV magnesium sulfate for neuro protection were initiated. The additional input of our skiver uppers or linings team is greatly appreciated.
--- NOTE | 2018-06-10 08:59 | P.OBANTE ---
Subjective Interval History: Patient resting comfortably asleep in bed while NST being performed. Objective Vital Signs and I&O: Vital Signs 06/09/18 09:00 06/09/18 10:00 06/09/18 11:00 Temperature Pulse Rate 119 H 124 H 104 H Respiratory Rate 28 H Blood Pressure 131/87 110/56 L Pulse Oximetry 06/09/18 11:54 06/09/18 12:00 06/09/18 13:00 Temperature 98.0 F Pulse Rate 106 H 104 H 98 H Respiratory Rate 24 Blood Pressure 117/62 111/57 L Pulse Oximetry 96 96 96 06/09/18 14:00 06/09/18 15:00 06/09/18 16:00 Temperature 98.0 F Pulse Rate 96 H 93 H 91 H Respiratory Rate 24 Blood Pressure 113/58 L 111/57 L 110/58 L Pulse Oximetry 96 97 97 06/09/18 17:00 06/09/18 18:00 06/09/18 19:00 Temperature Pulse Rate 87 87 92 H Respiratory Rate Blood Pressure 106/64 109/62 83/59 L Pulse Oximetry 97 96 95 06/09/18 19:19 06/09/18 20:00 06/09/18 21:00 Temperature 97.6 F Pulse Rate 91 H 88 Respiratory Rate 18 Blood Pressure 112/59 L 109/60 Pulse Oximetry 96 94 L 96 06/09/18 22:00 06/09/18 23:00 06/10/18 00:00 Temperature 97.8 F Pulse Rate 87 84 85 Respiratory Rate 20 Blood Pressure 103/61 106/64 110/63 Pulse Oximetry 96 96 95 06/10/18 01:00 06/10/18 02:00 06/10/18 03:00 Temperature Pulse Rate 91 H 86 84 Respiratory Rate Blood Pressure 111/62 103/67 109/62 Pulse Oximetry 96 95 96 06/10/18 03:18 06/10/18 04:00 06/10/18 05:00 Temperature 97.9 F Pulse Rate 83 90 Respiratory Rate 19 Blood Pressure 105/58 L 109/61 Pulse Oximetry 96 94 L 97 06/10/18 06:00 06/10/18 08:04 Temperature Pulse Rate 97 H Respiratory Rate Blood Pressure 117/58 L Pulse Oximetry 97 96 Intake & Output 06/09/18 06/10/18 06/10/18 18:59 06:59 18:59 Intake Total 2445 / 2445 2725 / 2725 Output Total 2049 1225 / 1225 Balance 395 / 395 1500 / 1500 Weight 83 kg Intake: IV 1963 / 1964 2245 / 2245 Magnesium Sulfate/Water 40 gm/ 1125 / 1125 1000 ml Premix 40 gm In 1,000 ml @ 2 GM/HR 50 mls/hr IV.CONT Q24H [facility] Rx#:[id number] Sodium Bicarbonate 8.4% Inj 150 1000 / 1000 1000 / 1000 MEQ In D5W Inj 850 ML @ 125 mls/hr IV.CONT .Q8H [facility] Rx#: [id number] Sodium Bicarbonate 8.4% Inj 50 965 / 965 MEQ In 1/2 Normal Saline Inj 950 ML @ 125 mls/hr IV.CONT . Q8H [facility] Rx#:[id number] Calcium Chloride Inj 2 GM In NS 120 / 120 Inj 100 ML @ 120 mls/hr IV.SIG ONCE ONE Rx#:[id number] Oral 480 / 480 480 / 480 Output: Urine Amount (Catheter) 2049 1225 / 1225 Indwelling Urethral Catheter 2049 1225 / 1225 Other: # Bowel Movements 0 Lab and Micro Results: Laboratory Results - last 24 hr 06/09/18 06/09/18 06/09/18 01:39 17:50 17:50 WBC RBC Hgb Hct MCV MCH MCHC RDW Plt Count MPV Neut % (Auto) Lymph % (Auto) [place] % (Auto) Eos % (Auto) Baso % (Auto) Neut # (Auto) Lymph # (Auto) [place] # (Auto) Eos # (Auto) Baso # (Auto) WBC Differential Differential Comment Sodium 137 Potassium 3.8 Chloride 110 H Carbon Dioxide 11.4 L Anion Gap 16 H BUN 8 Creatinine 0.63 Estimated GFR Greater than 89 POC Glucose Random Glucose 158 H Lactic Acid 0.8 Calcium 6.4 L* D Prot Corrected Calcium 6.8 L* Phosphorus Magnesium Total Bilirubin 0.7 AST 440 H ALT 154 H Alkaline Phosphatase 82 Total Creatine Kinase 54316 H CK-MB (CK-2) 106.1 H CK-MB (CK-2) % 0.3 Total Protein 6.2 L Albumin 2.8 L RPR Nonreactive 08/07/18 08/07/18 08/07/18 01:05 05:01 05:01 WBC 11.9 H RBC 2.93 L Hgb 8.7 L Hct 24.7 L MCV 84.4 MCH 29.5 MCHC 35.0 RDW 13.5 Plt Count 300 MPV 8.1 Neut % (Auto) 92.8 H Lymph % (Auto) 5.6 L [place] % (Auto) 1.6 Eos % (Auto) 0.0 Baso % (Auto) 0.0 Neut # (Auto) 11.1 H Lymph # (Auto) 0.7 L [place] # (Auto) 0.2 Eos # (Auto) 0.0 Baso # (Auto) 0.0 WBC Differential . Differential Comment Auto diff final Sodium 138 Potassium 3.4 L Chloride 107 Carbon Dioxide 21.5 D Anion Gap 10 BUN 7 Creatinine 0.47 L Estimated GFR Greater than 89 POC Glucose 173 H Random Glucose 169 H Lactic Acid Calcium 7.0 L* Prot Corrected Calcium 7.8 L D Phosphorus 1.8 L D Magnesium 2.7 H D Total Bilirubin 0.4 AST 274 H ALT 132 H Alkaline Phosphatase 72 Total Creatine Kinase 11787 H CK-MB (CK-2) 53.8 H CK-MB (CK-2) % 0.3 Total Protein 5.6 L D Albumin 2.6 L RPR Physical Exam: GENERAL: Well-nourished, well-developed patient. CARDIOVASCULAR: Regular rate and rhythm without murmurs, gallops, or rubs. RESPIRATORY: Breath sounds equal bilaterally. No accessory muscle use. ABDOMEN/GI: Abdomen soft, non-tender. GENITOURINARY: External Genitalia: Uterine Contractions: none FHT's: Category: 1 Baseline: wnL Reactive: yes Variability: yes Decels: one variable resolved quickly EXTREMITIES: No cyanosis or edema, non-tender, without signs of DVT. Assessment and Plan - Diagnosis (1) 31 weeks gestation of Code(s): Z3A.31 - 31 weeks gestation of Status: Acute Plan: 32 year o
--- NOTE | 2018-06-10 09:10 | P.CONOB ---
History of Present Illness Primary Care Physician: UNKNOWN Chief Complaint: 31 weeks gestation History of Present Illness: Patient resting comfortably sleeping while NST being performed Weeks Gestation:: 31 - Inpatient Certification I certify that the inpatient services were ordered in accordance with Medicare regulations governing the order. This includes certification that hospital inpatient services are reasonable and necessary and in the case of services not specified as inpatient-only under 42 CFR 419.22(n), that they are appropriately provided as inpatient services in accordance to with the 2-midnight benchmark under 43 CFR 412.3(e) Estimated Total Length of Stay (Days): 5 Plans for Post Hospital Care: Not yet determined Review of Systems All other systems reviewed negative except as stated in HPI [facility] - History History Provided By: Patient - Medical History Medical History: Medical History (Last Reviewed 06/08/18 @ 23:50 by Joe Celis MD) Attention deficit disorder Posttraumatic stress disorder - Surgical History Surgical History: Surgical History (Last Updated 06/08/18 @ 23:50 by Joe Celis MD) H/O abdominoplasty H/O breast augmentation History of - Tobacco History Second Hand Smoke Exposure: No Tobacco Use In Past 30 Days: No Smoking Status: Cognitive impairment Tobacco Type: Cigarettes - Alcohol History How Often Do You Have a Drink Containing Alcohol: Unable to Obtain - Substance Use History Substance History: Unable to Obtain - Travel History History of Recent Travel: No Recent Travel in the [place] Within the Last 8 Weeks: No Recent Travel Out of the Country Within the Last 8 Weeks: No - Immunization History Tetanus Immunization: Unable to Assess Hx Influenza Vaccine This Season: Unable to Assess Medications and Allergies Active Medications: Active Medications Acetaminophen (Tylenol) 650 mg PO Q6H PRN PRN Reason: PAIN 1-10 AND/OR FEVER >101F Al Hydroxide/Mg Hydroxide (Milk Of Magnesia Liq) 30 ml PO Q12H PRN PRN Reason: Mild Constipation Albuterol (Duoneb Neb (Prn)) 1 ampul NEB Q2HR NEB PRN PRN Reason: WHEEZING Bisacodyl (Dulcolax Supp) 10 mg RECTAL DAILY PRN PRN Reason: SEVERE CONSITIPATION Calcium Gluconate (Calcium Gluconate Inj) 1 gm IV.PUSH ONCE PRN PRN Reason: Magnesium Toxicity Chlorhexidine Gluconate (Chlorhexidine 2% Cloth) 3 pack TOPICAL DAILY@0400 [facility] Stop: 06/14/18 03:59 Last Admin: 06/09/18 05:01 Dose: 3 pack Chlorhexidine Gluconate (Chlorhexidine 2% Cloth) 3 pack TOPICAL DAILY@0400 PRN PRN Reason: Extra cloth needed Stop: 06/14/18 03:59 Haloperidol Lactate (Haldol Inj) 5 mg IV.PUSH Q6H PRN PRN Reason: AGITATION Last Admin: 06/10/18 06:08 Dose: 5 mg Sodium Bicarbonate 150 meq/ (Dextrose) 1,000 mls @ 125 mls/hr IV.CONT .Q8H [facility] Last Admin: 06/10/18 02:52 Dose: 125 mls/hr Magnesium Sulfate Inj 4 gm/ (Sodium Chloride) 100 mls @ 50 mls/hr IV.SIG UNSCH PRN PRN Reason: For Magnesium 0.9 - 1.1 mg/dL Magnesium Sulfate Inj 2 gm/ (Sodium Chloride) 100 mls @ 50 mls/hr IV.SIG UNSCH PRN PRN Reason: For Magnesium 1.2 - 1.6 mg/dL Potassium Chloride (Kcl 40 Meq Premix Inj) 40 meq in 100 mls @ 25 mls/hr IV.SIG Q2H PRN PRN Reason: For Potassium 2.8 - 3.2 mEq/L Potassium Chloride (Kcl 20 Meq Premix Inj) 20 meq in 100 mls @ 50 mls/hr IV.SIG Q2H PRN PRN Reason: For Potassium 3.3 - 3.5 mEq/L Potassium Chloride (Kcl 40 Meq Premix Inj) 40 meq in 100 mls @ 25 mls/hr IV.SIG UNSCH PRN PRN Reason: For Potassium 3.3 - 3.5 mEq/L Potassium Chloride (Kcl 20 Meq Premix Inj) 20 meq in 100 mls @ 50 mls/hr IV.SIG Q2H PRN PRN Reason: For Potassium 2.8 - 3.2 mEq/L Potassium Phosphate 30 mmol/ (Sodium Chloride) 260 mls @ 42 mls/hr IV.SIG UNSCH PRN PRN Reason: SEE LABEL COMMENTS Sodium Phosphate 30 mmol/ (Sodium Chloride) 260 mls @ 42 mls/hr IV.SIG UNSCH PRN PRN Reason: For Phosphorus < 2.5 mg/dL Lactulose (Lactulose Liq) 30 ml PO DAILY PRN PRN Reason: SEVERE CONSITIPATION Lorazepam (Ativan Inj) 1 mg IV.PUSH Q1H PRN PRN Reason: Agitation/sedation Last Admin: 06/09/18 07:27 Dose: 1 mg Magnesium Oxide (Mag-Ox) 800 mg PO UNSCH PRN PRN Reason: For Magnesium 1.2 - 1.6 mg/dL Ondansetron HCl (Zofran Inj) 4 mg IV.PUSH Q6H PRN PRN Reason: NAUSEA OR VOMITING Potassium Bicarb/Potassium Chloride (K-Lyte Cl Eff) 50 meq PO UNSCH PRN PRN Reason: For Potassium 3.3 - 3.5 mEq/L Potassium Phosphate (K-Phos Original) 2,000 mg PO Q4H PRN PRN Reason: Phosphorus Less Than 2.5 mg/dL Potassium Phosphate (K-Phos Original) 2,000 mg PO UNSCH PRN PRN Reason: SEE LABEL COMMENTS Sennosides (Senokot) 17.2 mg PO Q12H PRN PRN Reason: Moderate Constipation Sodium Chloride (Ns Flush) 2 ml IV.FLUSH BID [facility] Last Admin: 06/09/18 20:26 Dose: 2 ml Sodium Chloride (Ns Flush) 2 ml IV.FLUSH PRN PRN PRN Reason: FLUSH AFTER USING IV ACCESS Allergies Allergy/AdvReac Type Severity Reaction Status Date / Time No Allergy Information Allergy Unverified 06/08/18 19:35 Available Home Medications Medication Instructions Recorded Confirmed Type Unable to Obtain Home Meds 06/09/18 06/09/18 History Exam Vital signs: Vital Signs 06/09/18 10:00 06/09/18 11:00 06/09/18 11:54 Temperature Pulse Rate 124 H 104 H 106 H Respiratory Rate 28 H Blood Pressure 131/87 110/56 L Pulse Oximetry 96 06/09/18 12:00 06/09/18 13:00 06/09/18 14:00 Temperature 98.0 F Pulse Rate 104 H 98 H 96 H Respiratory Rate 24 Blood Pressure 117/62 111/57 L 113/58 L Pulse Oximetry 96 96 96 06/09/18 15:00 06/09/18 16:00 06/09/18 17:00 Temperature 98.0 F Pulse Rate 93 H 91 H 87 Respiratory Rate 24 Blood Pressure 111/57 L 110/58 L 106/64 Pulse Oximetry 97 97 97 06/09/18 18:00 06/09/18 19:00 06/09/18 19:19 Temperature Pulse Rate 87 92 H Respiratory Rate Blood Pressure 109/62 83/59 L Pulse Oximetry 96 95 96 06/09/18 20:00 06/09/18 21:00 06/09/18 22:00 Temperature 97.6 F Pulse Rate 91 H 88 87 Respiratory Rate 18 Blood Pressure 112/59 L 109/60 103/61 Pulse Oximetry 94 L 96 96 06/09/18 23:00 06/10/18 00:00 06/10/18 01:00 Temperature 97.8 F Pulse Rate 84 85 91 H Respiratory Rate 20 Blood Pressure 106/64 110/63 111/62 Pulse Oximetry 96 95 96 06/10/18 02:00 06/10/18 03:00 06/10/18 03:18 Temperature Pulse Rate 86 84 Respiratory Rate Blood Pressure 103/67 109/62 Pulse Oximetry 95 96 96 06/10/18 04:00 06/10/18 05:00 06/10/18 06:00 Temperature 97.9 F Pulse Rate 83 90 97 H Respiratory Rate 19 Blood Pressure 105/58 L 109/61 117/58 L Pulse Oximetry 94 L 97 97 06/10/18 08:04 Temperature Pulse Rate Respiratory Rate Blood Pressure Pulse Oximetry 96 Intake & Output 06/09/18 06/10/18 06/10/18 18:59 06:59 18:59 Intake Total 2445 / 2445 2725 / 2725 Output Total 2050 / 2050 1225 / 1225 Balance 395 / 395 1500 / 1500 Weight 83 kg Intake: IV 1963 / 1964 2245 / 2245 Magnesium Sulfate/Water 40 gm/ 1125 / 1125 1000 ml Premix 40 gm In 1,000 ml @ 2 GM/HR 50 mls/hr IV.CONT Q24H [facility] Rx#:[id number] Sodium Bicarbonate 8.4% Inj 150 1000 / 1000 1000 / 1000 MEQ In D5W Inj 850 ML @ 125 mls/hr IV.CONT .Q8H [facility] Rx#: [id number] Sodium Bicarbonate 8.4% Inj 50 965 / 965 MEQ In 1/2 Normal Saline Inj 950 ML @ 125 mls/hr IV.CONT . Q8H [facility] Rx#:[id number] Calcium Chloride Inj 2 GM In NS 120 / 120 Inj 100 ML @ 120 mls/hr IV.SIG ONCE ONE Rx#:[id number] Oral 480 / 480 480 / 480 Output: Urine Amount (Catheter) 2049 1225 / 1225 Indwelling Urethral Catheter 2049 1225 / 1225 Other: # Bowel Movements 0 Narrative: GENERAL: Well-nourished, well-developed patient. SKIN: Warm and dry. HEAD: Normocephalic and atraumatic. EYES: No scleral icterus. No injection or drainage. ENT: No nasal drainage noted. Mucous membranes pink. Airway patent. NECK: Supple, trachea midline. No JVD. CARDIOVASCULAR: Regular rate and rhythm without murmurs, gallops, or rubs. RESPIRATORY: Breath sounds equal bilaterally. No accessory muscle use. BREASTS: Bilateral exam showed no masses , no retractions, no nipple discharge. ABDOMEN/GI: Abdomen soft, non-tender, bowel sounds present, no rebound, no guarding GENITOURINARY: External Genitalia: Uterine Contractions: none FHT's: Category: 1 Baseline: within normal limits Reactive: yes Variability: moderate Decels: one variable quickly resolved EXTREMITIES: No cyanosis or edema. BACK: Nontender without obvious deformity. No CVA tenderness. NEUROLOGICAL: Awake and alert. Motor and sensory grossly within normal limits. Five out of 5 muscle strength in all muscle groups. Normal speech. Results - Labs CBC & Chem 7: 06/10/18 05:01 06/10/18 05:01 Labs: Laboratory Results - last 24 hr 06/09/18 06/09/18 06/09/18 01:39 17:50 17:50 WBC RBC Hgb Hct MCV MCH MCHC RDW Plt Count MPV Neut % (Auto) Lymph % (Auto) [place] % (Auto) Eos % (Auto) Baso % (Auto) Neut # (Auto) Lymph # (Auto) [place] # (Auto) Eos # (Auto) Baso # (Auto) WBC Differential Differential Comment Sodium 137 Potassium 3.8 Chloride 110 H Carbon Dioxide 11.4 L Anion Gap 16 H BUN 8 Creatinine 0.63 Estimated GFR Greater than 89 POC Glucose Random Glucose 158 H Lactic Acid 0.8 Calcium 6.4 L* D Prot Corrected Calcium 6.8 L* Phosphorus Magnesium Total Bilirubin 0.7 AST 440 H ALT 154 H Alkaline Phosphatase 82 Total Creatine Kinase 87315 H CK-MB (CK-2) 106.1 H CK-MB (CK-2) % 0.3 Total Protein 6.2 L Albumin 2.8 L RPR Nonreactive 06/10/18 06/10/18 06/10/18 01:05 05:01 05:01 WBC 11.9 H RBC 2.93 L Hgb 8.7 L Hct 24.7 L MCV 84.4 MCH 29.5 MCHC 35.0 RDW 13.5 Plt Count 300 MPV 8.1 Neut % (Auto) 92.8 H Lymph % (Auto) 5.6 L [place] % (Auto) 1.6 Eos % (Auto) 0.0 Baso % (Auto) 0.0 Neut # (Auto) 11.1 H Lymph # (Auto) 0.7 L [place] # (Auto) 0.2 Eos # (Auto) 0.0 Baso # (Auto) 0.0 WBC Differential . Differential Comment Auto diff final Sodium 138 Potassium 3.4 L Chloride 107 Carbon Dioxide 21.5 D Anion Gap 10 BUN 7 Creatinine 0.47 L Estimated GFR Greater than 89 POC Glucose 173 H Random Glucose 169 H Lactic Acid Calcium 7.0 L* Prot Corrected Calcium 7.8 L D Phosphorus 1.8 L D Magnesium 2.7 H D Total Bilirubin 0.4 AST 274 H ALT 132 H Alkaline Phosphatase 72 Total Creatine Kinase 12222 H CK-MB (CK-2) 53.8 H CK-MB (CK-2) % 0.3 Total Protein 5.6 L D Albumin 2.6 L RPR Caprini VTE Risk Assessment Caprini VTE Risk Assessment: No/Low Risk (score <= 1) Caprini Risk Assessment Model: Point Value = 1 Point Value = 2 Point Value = 3 Point Value = 5 Age 41-60 Minor surgery BMI > 25 kg/m2 Swollen legs Varicose veins or History of unexplained or recurrent spontaneous Oral contraceptives or hormone replacement Sepsis (< 1 month) Serious lung disease, including pneumonia (< 1 month) Abnormal pulmonary function Acute myocardial infarction Congestive heart failure (< 1 month) History of inflammatory bowel disease Medical patient at bed rest Age 61-74 Arthroscopic surgery Major open surgery (> 45 min) Laparoscopic surgery (> 45 min) Malignancy Confined to bed (> 72 hours) Immobilizing plaster cast Central venous access Age >= 75 History of VTE Family history of VTE Factor V Leiden Prothrombin [id number] Lupus anticoagulant Anticardiolipin antibodies Elevated serum homocysteine Heparin-induced thrombocytopenia Other congenital or acquired thrombophilia Stroke (< 1 month) Elective arthroplasty Hip, pelvis, or leg fracture Acute spinal cord injury (< 1 month) Prophylaxis Regimen: Total Risk Factor Score Risk Level Prophylaxis Regimen 0-1 Low Early ambulation 2 Moderate Order ONE of the following: *Sequential Compression Device (SCD) *Heparin 5000 units SQ BID 3-4 Higher Order ONE of the following medications: *Heparin 5000 units SQ TID *Enoxaparin/Lovenox 40 mg SQ daily (WT < 150 kg, CrCl > 30 mL/min) *Enoxaparin/Lovenox 30 mg SQ daily (WT < 150 kg, CrCl > 10-29 mL/min) *Enoxaparin/Lovenox 30 mg SQ BID (WT < 150 kg, CrCl > 30 mL/min) AND/OR *Sequential Compression Device (SCD) 5 or more Highest Order ONE of the following medications: *Heparin 5000 units SQ TID (Preferred with Epidurals) *Enoxaparin/Lovenox 40 mg SQ daily (WT < 150 kg, CrCl > 30 mL/min) *Enoxaparin/Lovenox 30 mg SQ daily (WT < 150 kg, CrCl > 10-29 mL/min) *Enoxaparin/Lovenox 30 mg SQ BID (WT < 150 kg, CrCl > 30 mL/min) AND *Sequential Compression Device (SCD) Assessment and Plan - Diagnosis (1) 31 weeks gestation of Code(s): Z3A.31 - 31 weeks gestation of Status: Acute Plan: 32 year old year old female at 31 weeks and 5 days by US presented in hypertensive crisis and found to have rhabdomyolysis. Initial BPP was 2/8 and tachycardia. Once patient's vitals stabilized, FHT improved. Currently doing well. OB diagnositics on 06/09 BPP /8. -FHT category 1 reassuring -Continue to monitor NST q shift -Please notify OB team if any loss of fluids, vaginal bleeding, contractions, or decreased movement Thank you for reaching out to us for patient's care. At this time, we will continue to follow.
[2018-06-10] MEDS: Sodium Bicarbonate 8.4% Inj 50 MEQ in Sodium Chloride 0.45 % Inj 1,000 ML IV.CONT SCH ×2 (10:55→21:39)
[2018-06-10 17:50] LABS: Hemoglobin A1c 4.5 % (4.3-6.0)
[2018-06-10] MEDS: Chlorhexidine Gluconate 2% 1 Pack (2 Cloths) TOPICAL SCH (20:54)
[2018-06-10 21:04] LABS: Potassium 3.1 meq/L (3.5-5.1)
[2018-06-10 21:09] LABS: Phosphorus 1.7 mg/dL (2.5-4.9)
[2018-06-10] MEDS: Potassium Phosphate Inj 30 MMOL in Sodium Chlor 0.9% Inj 250 ML IV.SIG PRN (23:09)
[2018-06-11] MEDS: Chlorhexidine Gluconate 2% 1 Pack (2 Cloths) TOPICAL SCH (03:38)
[2018-06-11 08:03] LABS: Baso % (Auto) 0.4 % (0.0-2.0); Eos % (Auto) 0.1 % (0.0-4.0); Hematocrit 23.8 % (35.0-46.0); Hemoglobin 8.2 gm/dL (11.6-15.3); Lymph # (Auto) 1.3 th/mm3 (1.0-4.8); Lymph % (Auto) 11.8 % (9.0-44.0); Mean Corpuscular HGB Conc 34.6 % (32.0-36.0); Mean Corpuscular Hemoglobin 29.6 pg (27.0-34.0); Mean Corpuscular Volume 85.7 fL (80.0-100.0); Mean Platelet Volume 8.3 fL (7.0-11.0); Mono # (Auto) 0.6 th/mm3 (0.0-0.9); Mono % (Auto) 5.4 % (0.0-8.0); Neut # (Auto) 9.3 th/mm3 (1.8-7.7); Neut % (Auto) 82.3 % (16.0-70.0); Platelet Count 258 th/mm3 (150-450); Red Blood Count 2.77 mil/mm3 (4.00-5.30); Red Cell Distribution Width 13.3 % (11.6-17.2); White Blood Count 11.2 th/mm3 (4.0-11.0)
[2018-06-11 08:58] LABS: Alanine Aminotransferase 127 U/L (10-53); Albumin 2.3 g/dL (3.4-5.0); Alkaline Phosphatase 66 U/L (45-117); Anion Gap 8 meq/L (5-15); Aspartate Aminotransferase 152 U/L (15-37); Blood Urea Nitrogen 6 mg/dL (7-18); Calcium 7.3 mg/dL (8.5-10.1); Carbon Dioxide 25.2 meq/L (21.0-32.0); Chloride 109 meq/L (98-107); Creatine Kinase 8318 U/L (26-192); Glomerular Filtration Rate Greater Than 89 mL/min (>89); Glucose,Random 99 mg/dL (74-106); Magnesium 2.3 mg/dL (1.5-2.5); Phosphorus 2.8 mg/dL (2.5-4.9); Potassium 3.3 meq/L (3.5-5.1); Sodium 142 meq/L (136-145); Total Protein 5.3 g/dL (6.4-8.2)
[2018-06-11] MEDS: Sodium Bicarbonate 8.4% Inj 50 MEQ in Sodium Chloride 0.45 % Inj 1,000 ML IV.CONT SCH (09:03)
[2018-06-11 09:25] LABS: CKMB Percent 0.2 % (0.0-4.0); Creatine Kinase MB 15.3 ng/mL (0.5-3.6)
--- NOTE | 2018-06-11 10:26 | P.PN ---
Subjective Interval history: Follow-up rhabdomyolysis. She is doing good wants to go home but understands she needs continued IV hydration because of rhabdomyolysis CK is improving down to 8000. Physical Exam Vital signs: Vital Signs 06/10/18 11:00 06/10/18 12:00 06/10/18 13:00 Temperature 98.9 F Pulse Rate 90 86 94 H Respiratory Rate Blood Pressure 95/50 L 94/50 L Pulse Oximetry 97 97 96 06/10/18 13:38 06/10/18 14:00 06/10/18 15:00 Temperature Pulse Rate 89 80 83 Respiratory Rate Blood Pressure 121/56 L 125/58 L 122/58 L Pulse Oximetry 96 96 96 06/10/18 16:00 06/10/18 17:00 06/10/18 18:00 Temperature 98.6 F Pulse Rate 80 77 79 Respiratory Rate Blood Pressure 125/57 L 122/54 L 126/60 Pulse Oximetry 97 06/10/18 19:00 06/10/18 20:00 06/10/18 21:00 Temperature 98.4 F Pulse Rate 91 H 100 H 90 Respiratory Rate 20 Blood Pressure 113/56 L 100/57 L 100/57 L Pulse Oximetry 96 96 06/10/18 21:01 06/10/18 22:00 06/10/18 23:00 Temperature Pulse Rate 86 79 Respiratory Rate Blood Pressure 99/51 L 105/58 L Pulse Oximetry 97 97 98 06/11/18 00:00 06/11/18 00:09 06/11/18 01:00 Temperature 98.3 F Pulse Rate 91 H 91 H 94 H Respiratory Rate 19 Blood Pressure 105/58 L 105/58 L 111/57 L Pulse Oximetry 74 L 97 97 06/11/18 02:00 06/11/18 03:00 06/11/18 04:00 Temperature 98.2 F Pulse Rate 78 92 H 77 Respiratory Rate 19 Blood Pressure 108/58 L 112/59 L 110/66 Pulse Oximetry 95 97 96 06/11/18 06:00 Temperature Pulse Rate 80 Respiratory Rate Blood Pressure Pulse Oximetry Intake & Output 06/10/18 06/11/18 06/11/18 18:59 06:59 18:59 Intake Total 1000 / 1000 863 / 863 1050 / 1050 Output Total 1999 Balance -1000 / -1000 863 / 863 1050 / 1050 Weight 85.5 kg Intake: IV 800 / 800 200 / 200 1050 / 1050 Sodium Bicarbonate 8.4% Inj 50 800 / 800 200 / 200 1050 / 1050 MEQ In 1/2 Normal Saline Inj 1, 000 ML @ 100 mls/hr IV.CONT . [id number] SUE Rx#:[id number] Oral 200 / 200 663 / 663 Output: Urine Amount (Catheter) 1999 Indwelling Urethral Catheter 1999 Other: # Voids 4 Date of Last Bowel Movement 06/10/18 # Bowel Movements 0 1 Narrative: HEENT/Neuro: No pallor or icterus, tongue dry, JUNIOR, Awake alert oriented 3, nonfocal grossly, moving all 4 extremities Neck: No JVD Chest/pulmonary: CTA bilaterally Cardiovascular: S1-S2 regular no gallop or murmur GI/abdomen: Soft, nontender, bowel sounds present. Uterus enlarged on palpation (). monitoring in progress Extremities: Warm bilaterally, no edema Awake and alert oriented clam and cooperative - Urinary Catheter Management Indwelling Urethral Catheter Cath placed during this visit: yes, but has since been removed by the nurse Reason for continuing: Other continuation reason Insertion date: 06/08/18 Insertion time: 22:00 Removal date: 06/10/18 Removal time: 18:30 Results - Labs CBC & Chem 7: 06/11/18 07:40 06/11/18 07:40 Laboratory Results - last 24 hr 06/10/18 06/10/18 06/10/18 05:01 11:48 16:37 WBC RBC Hgb Hct MCV MCH MCHC RDW Plt Count MPV Neut % (Auto) Lymph % (Auto) [place] % (Auto) Eos % (Auto) Baso % (Auto) Neut # (Auto) Lymph # (Auto) [place] # (Auto) Eos # (Auto) Baso # (Auto) WBC Differential Differential Comment Sodium Potassium Chloride Carbon Dioxide Anion Gap BUN Creatinine Estimated GFR POC Glucose 152 H 146 H Random Glucose Hemoglobin A1c 4.5 Calcium Prot Corrected Calcium Phosphorus Magnesium Total Bilirubin AST ALT Alkaline Phosphatase Total Creatine Kinase CK-MB (CK-2) CK-MB (CK-2) % Total Protein Albumin 06/10/18 06/10/18 06/11/18 19:57 23:51 06:14 WBC RBC Hgb Hct MCV MCH MCHC RDW Plt Count MPV Neut % (Auto) Lymph % (Auto) [place] % (Auto) Eos % (Auto) Baso % (Auto) Neut # (Auto) Lymph # (Auto) [place] # (Auto) Eos # (Auto) Baso # (Auto) WBC Differential Differential Comment Sodium Potassium 3.1 L Chloride Carbon Dioxide Anion Gap BUN Creatinine Estimated GFR POC Glucose 144 H 126 H Random Glucose Hemoglobin A1c Calcium Prot Corrected Calcium Phosphorus 1.7 L Magnesium Total Bilirubin AST ALT Alkaline Phosphatase Total Creatine Kinase CK-MB (CK-2) CK-MB (CK-2) % Total Protein Albumin 06/11/18 06/11/18 07:40 07:40 WBC 11.2 H RBC 2.77 L Hgb 8.2 L Hct 23.8 L MCV 85.7 MCH 29.6 MCHC 34.6 RDW 13.3 Plt Count 258 MPV 8.3 Neut % (Auto) 82.3 H Lymph % (Auto) 11.8 [place] % (Auto) 5.4 Eos % (Auto) 0.1 Baso % (Auto) 0.4 Neut # (Auto) 9.3 H Lymph # (Auto) 1.3 [place] # (Auto) 0.6 Eos # (Auto) 0.0 Baso # (Auto) 0.0 WBC Differential . Differential Comment Auto diff final Sodium 142 Potassium 3.3 L Chloride 109 H Carbon Dioxide 25.2 Anion Gap 8 BUN 6 L Creatinine 0.40 L Estimated GFR Greater than 89 POC Glucose Random Glucose 99 Hemoglobin A1c Calcium 7.3 L* Prot Corrected Calcium 8.3 L Phosphorus 2.8 D Magnesium 2.3 Total Bilirubin 0.2 AST 152 H ALT 127 H Alkaline Phosphatase 66 Total Creatine Kinase 8318 H CK-MB (CK-2) 15.3 H CK-MB (CK-2) % 0.2 Total Protein 5.3 L Albumin 2.3 L Microbiology 06/09/18 17:50 Blood - Peripheral Aerobic Blood Culture - Preliminary No growth in 1 day 06/09/18 17:50 Blood - Peripheral Anaerobic Blood Culture - Preliminary No growth in 1 day 06/09/18 17:45 Blood - Peripheral Aerobic Blood Culture - Preliminary No growth in 1 day 06/09/18 17:45 Blood - Peripheral Anaerobic Blood Culture - Preliminary No growth in 1 day - Procedures none Assessment and Plan - Plan Toxic encephalopathy. Improving -UDS with Amphetamine. Patient counseled. -Ativan as needed. Given Ativan 4 mg IV and Haldol 5 mg IV for severe agitation earlier. Psychiatry consulted. Patient is Landon acted. -Ct telemetry -Neuro checks per unit protocol -IV fluid hydration IUP 31 weeks -Dr. 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 Improving Metabolic acidosis -Changed to half NS with 1 amp of bicarb -Frequent CPKs Leukocytosis. Improving. Lactic acid within normal limits. Blood cultures pending Anemia secondary to dilution. No gross bleeding acute kidney injury with hypokalemia, hypophosphatemia and hypocalcemia. Improving on IV hydration. Replace electrolytes per protocol Hyperglycemia from dextrose. A1c within normal limits DVT GI prophylaxis -Teds SCDs -Early aggressive mobilization Discharge Planning: under BA per Psych will initiate MA on dc
--- NOTE | 2018-06-11 11:47 | P.PNPSY ---
Subjective Remarks: Patient seen and examined. Chart reviewed. Case discussed with nursing staff. On my examination today, the patient is lucid without significant evidence of encephalopathy. She denies SI/HI. Denies AVH. No evident mood or psychotic symptoms. She believes that her issues are primarily substance-related. "Unfortunately, I have a substance use problem." She reports that she has a chem dep counselor at [facility] with whom she meets weekly. She is opposed, however, to escalating her level of chem dep treatment. Vital Signs Temp Pulse Resp BP Pulse Ox 06/11/18 13:00 97 H 119/69 97 06/11/18 12:44 94 H 118/55 L 96 06/11/18 12:01 92 H 124/56 L 96 06/11/18 12:00 98.7 F 92 H 124/56 L 97 06/11/18 11:44 87 128/57 L 97 06/11/18 11:00 80 102/55 L 100 06/11/18 10:32 95 H 122/71 98 06/11/18 10:00 93 H 117/63 98 06/11/18 09:50 84 115/61 98 06/11/18 09:02 99 H 119/59 L 97 06/11/18 09:00 108 H 97 06/11/18 08:30 74 98/53 L 100 06/11/18 08:08 83 119/57 L 99 06/11/18 08:00 97.8 F 89 19 119/57 L 99 06/11/18 07:00 77 99/58 L 99 06/11/18 06:00 79 112/60 98 06/11/18 05:00 80 114/58 L 98 06/11/18 04:00 98.2 F 77 19 110/66 96 06/11/18 03:00 92 H 112/59 L 97 06/11/18 02:00 78 108/58 L 95 06/11/18 01:00 94 H 111/57 L 97 06/11/18 00:09 91 H 105/58 L 97 06/11/18 00:00 98.3 F 91 H 19 105/58 L 74 L 06/10/18 23:00 79 105/58 L 98 06/10/18 22:00 86 99/51 L 97 06/10/18 21:01 97 06/10/18 21:00 90 100/57 L 96 06/10/18 20:00 98.4 F 100 H 20 100/57 L 96 06/10/18 19:00 91 H 113/56 L 06/10/18 18:00 79 126/60 06/10/18 17:00 77 122/54 L 06/10/18 16:00 98.6 F 80 125/57 L 97 06/10/18 15:00 83 122/58 L 96 Intake and Output 06/10/18 06/11/18 06/11/18 22:59 06:59 14:59 Intake Total 1200 / 1200 923 / 923 1050 / 1050 Output Total 1999 Balance -800 / -800 923 / 923 1050 / 1050 Intake: IV 1000 / 1000 260 / 260 1050 / 1050 Sodium Bicarbonate 8.4% Inj 50 1000 / 1000 1050 / 1050 MEQ In 1/2 Normal Saline Inj 1, 000 ML @ 100 mls/hr IV.CONT . [id number] SUE Rx#:[id number] Potassium Phosphate Inj 30 MMOL 260 / 260 In NS Inj 250 ML @ 42 mls/hr IV.SIG UNSCH PRN Rx#:[id number] Oral 200 / 200 663 / 663 Output: Urine Amount (Catheter) 1999 Indwelling Urethral Catheter 1999 Other: # Voids 4 Date of Last Bowel Movement 06/10/18 06/10/18 06/10/18 # Bowel Movements 0 1 Weight 85.5 kg Laboratory Results - last 24 hr 06/10/18 06/10/18 06/10/18 05:01 16:37 19:57 WBC RBC Hgb Hct MCV MCH MCHC RDW Plt Count MPV Neut % (Auto) Lymph % (Auto) [place] % (Auto) Eos % (Auto) Baso % (Auto) Neut # (Auto) Lymph # (Auto) [place] # (Auto) Eos # (Auto) Baso # (Auto) WBC Differential Differential Comment Sodium Potassium 3.1 L Chloride Carbon Dioxide Anion Gap BUN Creatinine Estimated GFR POC Glucose 146 H Random Glucose Hemoglobin A1c 4.5 Calcium Prot Corrected Calcium Phosphorus 1.7 L Magnesium Total Bilirubin AST ALT Alkaline Phosphatase Total Creatine Kinase CK-MB (CK-2) CK-MB (CK-2) % Total Protein Albumin 06/10/18 06/11/18 06/11/18 23:51 06:14 07:40 WBC 11.2 H RBC 2.77 L Hgb 8.2 L Hct 23.8 L MCV 85.7 MCH 29.6 MCHC 34.6 RDW 13.3 Plt Count 258 MPV 8.3 Neut % (Auto) 82.3 H Lymph % (Auto) 11.8 [place] % (Auto) 5.4 Eos % (Auto) 0.1 Baso % (Auto) 0.4 Neut # (Auto) 9.3 H Lymph # (Auto) 1.3 [place] # (Auto) 0.6 Eos # (Auto) 0.0 Baso # (Auto) 0.0 WBC Differential . Differential Comment Auto diff final Sodium Potassium Chloride Carbon Dioxide Anion Gap BUN Creatinine Estimated GFR POC Glucose 144 H 126 H Random Glucose Hemoglobin A1c Calcium Prot Corrected Calcium Phosphorus Magnesium Total Bilirubin AST ALT Alkaline Phosphatase Total Creatine Kinase CK-MB (CK-2) CK-MB (CK-2) % Total Protein Albumin 06/11/18 06/11/18 07:40 12:04 WBC RBC Hgb Hct MCV MCH MCHC RDW Plt Count MPV Neut % (Auto) Lymph % (Auto) [place] % (Auto) Eos % (Auto) Baso % (Auto) Neut # (Auto) Lymph # (Auto) [place] # (Auto) Eos # (Auto) Baso # (Auto) WBC Differential Differential Comment Sodium 142 Potassium 3.3 L 3.1 L Chloride 109 H Carbon Dioxide 25.2 Anion Gap 8 BUN 6 L Creatinine 0.40 L Estimated GFR Greater than 89 POC Glucose Random Glucose 99 Hemoglobin A1c Calcium 7.3 L* Prot Corrected Calcium 8.3 L Phosphorus 2.8 D 2.0 L Magnesium 2.3 Total Bilirubin 0.2 AST 152 H ALT 127 H Alkaline Phosphatase 66 Total Creatine Kinase 8318 H CK-MB (CK-2) 15.3 H CK-MB (CK-2) % 0.2 Total Protein 5.3 L Albumin 2.3 L CK continues to trend briskly downward. Renal function remains improved. Extended urine toxicology still pending. Review of Systems All other systems reviewed negative except as stated in HPI Mental Status Examination Appearance: Disheveled (Mild) Consciousness: Alert Orientation: Person, Place Motor Activity: Other (No motoric abnormalities noted.) Speech: Unremarkable Language: Adequate Fund of Knowledge: Adequate Attention and Concentration: Adequate Memory: Unremarkable Mood: Appropriate Affect: Appropriate Thought Process & Associations: Intact, Logical, Linear Thought Content: Appropriate Hallucination Type: None Delusion Type: None Suicidal Ideation: No Suicidal Plan: No Suicidal Intention: No Homicidal Ideation: No Homicidal Plan: No Homicidal Intention: No Insight: Poor Judgment: Poor Assessment and Plan - Assessment (1) Polysubstance abuse Code(s): F19.10 - Other psychoactive substance abuse, uncomplicated Status: Acute - Plan Plan: No evidence of unstable mental illness as defined under the Landon Act on examination today. Patient denies SI/HI. Patient does not meet Landon Act criteria, and I am lifting the Landon Act. The patient does have significant substance use issues, and I question her insight into these issues and commitment to attending to them properly. I will institute a Physician's Certificate for emergency admission to chem dep facility once medically cleared. Call Gonzalo Alberto when medical clearance is anticipated and inform them that there is a patient under a P.C. in need of chem dep treatment. Plan will be for transfer to [facility] for chem dep treatment. Case d/w RN. I will plan to follow up as needed. I have checked with dept litigation legal assistant and the P.C. will last for 3 days but can be renewed. If patient is not yet medically cleared in 3 days time, notify me (I will be teacher of family and consumer science over weekend, pgr [phone]), and I will renew the P.C.. Justification for Continued Inpatient Stay: Per primary team Discharge Planning: Anticipate transfer to [facility] under P.C.
[2018-06-11 13:06] LABS: Potassium 3.1 meq/L (3.5-5.1)
[2018-06-11] MEDS: Potassium Phosphate Inj 30 MMOL in Sodium Chlor 0.9% Inj 250 ML IV.SIG PRN (14:15)
[2018-06-11] MEDS: Potassium Phos/Sodium Phos 250 MG Tablet PO SCH (20:47)
[2018-06-11] MEDS: Famotidine 20 MG Tablet PO SCH (21:20)
[2018-06-12] MEDS: Sodium Bicarbonate 8.4% Inj 50 MEQ in Sodium Chloride 0.45 % Inj 1,000 ML IV.CONT SCH ×4 (03:55→21:05)
[2018-06-12] MEDS: Chlorhexidine Gluconate 2% 1 Pack (2 Cloths) TOPICAL SCH (08:36)
[2018-06-12] MEDS: Potassium Phos/Sodium Phos 250 MG Tablet PO SCH ×2 (08:37→21:06)
[2018-06-12] MEDS: Famotidine 20 MG Tablet PO SCH ×2 (08:37→21:06)
[2018-06-12 09:02] LABS: Alanine Aminotransferase 147 U/L (10-53); Albumin 2.5 g/dL (3.4-5.0); Anion Gap 8 meq/L (5-15); Aspartate Aminotransferase 135 U/L (15-37); Blood Urea Nitrogen 10 mg/dL (7-18); Calcium 8.3 mg/dL (8.5-10.1); Carbon Dioxide 24.2 meq/L (21.0-32.0); Chloride 109 meq/L (98-107); Glomerular Filtration Rate Greater Than 89 mL/min (>89); Glucose,Random 69 mg/dL (74-106); Magnesium 1.7 mg/dL (1.5-2.5); Phosphorus 2.9 mg/dL (2.5-4.9); Potassium 3.9 meq/L (3.5-5.1); Sodium 141 meq/L (136-145)
[2018-06-12 09:13] LABS: Alkaline Phosphatase 68 U/L (45-117); Creatine Kinase 4684 U/L (26-192); Total Protein 5.4 g/dL (6.4-8.2)
[2018-06-12 09:33] LABS: CKMB Percent 0.3 % (0.0-4.0); Creatine Kinase MB 13.3 ng/mL (0.5-3.6)
--- NOTE | 2018-06-12 11:15 | P.PNIM ---
Subjective Interval history: No overnight events, no complaints, ambulating. Urinating well. Physical Exam Vital signs: Vital Signs 06/11/18 11:44 06/11/18 12:00 06/11/18 12:01 Temperature 98.7 F Pulse Rate 87 92 H 92 H Respiratory Rate Blood Pressure 128/57 L 124/56 L 124/56 L Pulse Oximetry 97 97 96 06/11/18 12:44 06/11/18 13:00 06/11/18 14:00 Temperature Pulse Rate 94 H 97 H 83 Respiratory Rate Blood Pressure 118/55 L 119/69 Pulse Oximetry 96 97 06/11/18 16:00 06/11/18 20:00 06/12/18 00:00 Temperature 98.5 F 98.3 F 98.5 F Pulse Rate 80 95 H 74 Respiratory Rate 18 18 18 Blood Pressure 128/80 134/76 126/65 Pulse Oximetry 98 99 97 06/12/18 04:00 06/12/18 08:00 Temperature 98.1 F 98.2 F Pulse Rate 65 76 Respiratory Rate 18 20 Blood Pressure 114/64 120/76 Pulse Oximetry 99 99 Intake & Output 06/11/18 06/12/18 06/12/18 18:59 06:59 18:59 Intake Total 1530 / 1530 240 / 240 Balance 1530 / 1530 240 / 240 Weight 85.7 kg Intake: IV 1050 / 1050 Sodium Bicarbonate 8.4% Inj 50 1050 / 1050 MEQ In 1/2 Normal Saline Inj 1, 000 ML @ 100 mls/hr IV.CONT . [id number] [facility] Rx#:[id number] Oral 480 / 480 240 / 240 Other: # Voids 3 Date of Last Bowel Movement 06/10/18 06/11/17 06/10/18 # Bowel Movements 0 Narrative: Not in distress HEENT/Neuro: No pallor or icterus, tongue dry, JUNIOR, perioral herpes simplex lesions Neck: No JVD Chest/pulmonary: CTA bilaterally Cardiovascular: S1-S2 regular no gallop or murmur GI/abdomen: Soft, nontender, bowel sounds present. Uterus enlarged on palpation (). monitoring in progress Extremities: Warm bilaterally, no edema Awake and alert oriented clam and cooperative, no focal deficits - Urinary Catheter Management Indwelling Urethral Catheter Cath placed during this visit: yes, but has since been removed by the nurse Reason for continuing: Other continuation reason Insertion date: 06/08/18 Insertion time: 22:00 Removal date: 06/10/18 Removal time: 18:30 Results - Labs CBC & Chem 7: 06/11/18 07:40 06/12/18 06:38 Laboratory Results - last 24 hr 06/11/18 06/11/18 06/12/18 12:04 17:19 06:38 Sodium 141 Potassium 3.1 L 3.9 D Chloride 109 H Carbon Dioxide 24.2 Anion Gap 8 BUN 10 Creatinine 0.40 L Estimated GFR Greater than 89 POC Glucose 106 Random Glucose 69 L Calcium 8.3 L D Phosphorus 2.0 L 2.9 Magnesium 1.7 D Total Bilirubin 0.2 AST 135 H ALT 147 H Alkaline Phosphatase 68 Total Creatine Kinase 4684 H CK-MB (CK-2) 13.3 H CK-MB (CK-2) % 0.3 Total Protein 5.4 L Albumin 2.5 L Microbiology 06/09/18 17:50 Blood - Peripheral Aerobic Blood Culture - Preliminary No growth in 3 days 06/09/18 17:50 Blood - Peripheral Anaerobic Blood Culture - Preliminary No growth in 3 days 06/09/18 17:45 Blood - Peripheral Aerobic Blood Culture - Preliminary No growth in 3 days 06/09/18 17:45 Blood - Peripheral Anaerobic Blood Culture - Preliminary No growth in 3 days - Procedures none Assessment and Plan - Plan This is a 32-year-old female admitted for rhabdomyolysis Toxic encephalopathy, Improving -UDS with Amphetamine. Patient counseled. -Ativan as needed. Given Ativan 4 mg IV and Haldol 5 mg IV for severe agitation earlier. Psychiatry consulted, Landon Act lifted , on d/c patient needs to be transferred to [facility] under PC -Neuro checks per unit protocol IUP 31 weeks -Dr. Celis -BIOMETRIC FINGERPRINTING TECHNICIAN greatly appreciated -high risk for placental abruption, -continuous monitoring -Betamethasone therapy for lung maturation -IV magnesium sulfate for neuro protection Rhabdomyolysis with abnormal LFts. Improving Metabolic acidosis -Changed to half NS with 1 amp of bicarb -CK 4000 today, recheck tomorrow, continue sodium bicarb drip. Leukocytosis. Improving. Lactic acid within normal limits. Recheck CBC tomorrow, blood cultures negative to date. Anemia secondary to dilution. No gross bleeding acute kidney injury with hypokalemia, hypophosphatemia and hypocalcemia. Improving on IV hydration. Replace electrolytes per protocol Hyperglycemia from dextrose. A1c within normal limits Perioral herpes simplex-start famciclovir orally and acyclovir topically if okay with BIOMETRIC FINGERPRINTING TECHNICIAN DVT GI prophylaxis -Teds SCDs -Early aggressive mobilization Discharge Planning: Call Gonzalo Alberto when medical clearance is anticipated and inform them that there is a patient under a P.C. in need of chem dep treatment. Plan will be for transfer to [facility] for chem dep treatment.
[2018-06-12 20:35] LABS: CKMB Percent 0.4 % (0.0-4.0); Creatine Kinase MB 10.2 ng/mL (0.5-3.6)
[2018-06-13] MEDS: Sodium Bicarbonate 8.4% Inj 50 MEQ in Sodium Chloride 0.45 % Inj 1,000 ML IV.CONT SCH ×2 (03:56→11:53)
[2018-06-13] MEDS: Chlorhexidine Gluconate 2% 1 Pack (2 Cloths) TOPICAL SCH (03:56)
[2018-06-13 08:15] LABS: Hematocrit 26.3 % (35.0-46.0); Hemoglobin 9.2 gm/dL (11.6-15.3); Mean Corpuscular HGB Conc 35.1 % (32.0-36.0); Mean Corpuscular Hemoglobin 30.2 pg (27.0-34.0); Mean Corpuscular Volume 85.9 fL (80.0-100.0); Mean Platelet Volume 8.2 fL (7.0-11.0); Platelet Count 279 th/mm3 (150-450); Red Blood Count 3.06 mil/mm3 (4.00-5.30); Red Cell Distribution Width 13.2 % (11.6-17.2); White Blood Count 10.8 th/mm3 (4.0-11.0)
[2018-06-13] MEDS: Famotidine 20 MG Tablet PO SCH ×2 (08:33→20:51)
[2018-06-13] MEDS: Potassium Phos/Sodium Phos 250 MG Tablet PO SCH ×2 (08:33→20:51)
[2018-06-13 08:37] LABS: Anion Gap 9 meq/L (5-15); Blood Urea Nitrogen 12 mg/dL (7-18); Calcium 8.4 mg/dL (8.5-10.1); Carbon Dioxide 26.2 meq/L (21.0-32.0); Chloride 106 meq/L (98-107); Glomerular Filtration Rate Greater Than 89 mL/min (>89); Glucose,Random 71 mg/dL (74-106); Potassium 3.5 meq/L (3.5-5.1); Sodium 141 meq/L (136-145)
[2018-06-13 08:52] LABS: Creatine Kinase 1148 U/L (26-192)
[2018-06-13 09:07] LABS: CKMB Percent 0.5 % (0.0-4.0); Creatine Kinase MB 5.6 ng/mL (0.5-3.6)
--- NOTE | 2018-06-13 11:31 | P.PNIM ---
Subjective Interval history: CKs 1148, asymptomatic. No extremity pain. Refuses to go to [facility]. She states that she sees someone weekly but has poor insight and appears to have lack of commitment. Physical Exam Vital signs: Vital Signs 06/12/18 12:00 06/12/18 16:00 06/12/18 20:00 Temperature 97.7 F 98.1 F 97.6 F Pulse Rate 75 78 87 Respiratory Rate 20 20 18 Blood Pressure 126/64 122/67 129/70 Pulse Oximetry 100 99 99 06/13/18 00:00 06/13/18 04:00 06/13/18 07:32 Temperature 97.8 F 97.7 F 98.4 F Pulse Rate 75 73 75 Respiratory Rate 18 18 12 Blood Pressure 143/69 H 121/58 L 135/80 Pulse Oximetry 99 98 99 Intake & Output 06/12/18 06/13/18 06/13/18 18:59 06:59 18:59 Intake Total 1360 / 1360 1100 / 1100 Balance 1360 / 1360 1100 / 1100 Weight 89.4 kg Intake: IV 1360 / 1360 1100 / 1100 Sodium Bicarbonate 8.4% Inj 50 1100 / 1100 1100 / 1100 MEQ In 1/2 Normal Saline Inj 1, 000 ML @ 100 mls/hr IV.CONT . [id number] SUE Rx#:[id number] Potassium Phosphate Inj 30 MMOL 260 / 260 In NS Inj 250 ML @ 42 mls/hr IV.SIG UNSCH PRN Rx#:[id number] Other: Date of Last Bowel Movement 06/10/18 06/12/18 06/10/18 # Bowel Movements 1 Narrative: Not in distress HEENT/Neuro: No pallor or icterus, tongue dry, JUNIOR, perioral herpes simplex lesions Neck: No JVD Chest/pulmonary: CTA bilaterally Cardiovascular: S1-S2 regular no gallop or murmur GI/abdomen: Soft, nontender, bowel sounds present. Uterus enlarged on palpation (). Extremities: Warm bilaterally, no edema Awake and alert oriented clam and cooperative, no focal deficits - Urinary Catheter Management Indwelling Urethral Catheter Cath placed during this visit: yes, but has since been removed by the nurse Reason for continuing: Other continuation reason Insertion date: 06/08/18 Insertion time: 22:00 Removal date: 06/10/18 Removal time: 18:30 Results - Labs CBC & Chem 7: 08/10/18 07:10 06/13/18 07:10 Laboratory Results - last 24 hr 06/12/18 06/13/18 06/13/18 18:45 07:10 07:10 WBC 10.8 RBC 3.06 L Hgb 9.2 L Hct 26.3 L MCV 85.9 MCH 30.2 MCHC 35.1 RDW 13.2 Plt Count 279 MPV 8.2 Sodium 141 Potassium 3.5 Chloride 106 Carbon Dioxide 26.2 Anion Gap 9 BUN 12 Creatinine 0.40 L Estimated GFR Greater than 89 Random Glucose 71 L Calcium 8.4 L Total Creatine Kinase 2288 H 1148 H CK-MB (CK-2) 10.2 H 5.6 H CK-MB (CK-2) % 0.4 0.5 Microbiology 06/09/18 17:50 Blood - Peripheral Aerobic Blood Culture - Preliminary No growth in 4 days 06/09/18 17:50 Blood - Peripheral Anaerobic Blood Culture - Preliminary No growth in 4 days 06/09/18 17:45 Blood - Peripheral Aerobic Blood Culture - Preliminary No growth in 4 days 06/09/18 17:45 Blood - Peripheral Anaerobic Blood Culture - Preliminary No growth in 4 days - Procedures none Assessment and Plan - Plan This is a 32-year-old female admitted for rhabdomyolysis Toxic encephalopathy, Improving -UDS with Amphetamine. Patient counseled. -Ativan as needed. Given Ativan 4 mg IV and Haldol 5 mg IV for severe agitation earlier. Psychiatry consulted, Landon Act lifted , on d/c patient needs to be transferred to [facility] under PC, patient refuses but for the health of her fetus, she needs to be discharged to [facility] IUP 31 weeks -Dr. Celis -[employer] greatly appreciated -high risk for placental abruption, continuous monitoring -Betamethasone therapy for lung maturation -IV magnesium sulfate for neuro protection Rhabdomyolysis with abnormal LFts. Improving Metabolic acidosis -CK 1148, consistently trending down, may discharge today. Leukocytosis-resolved, blood cultures negative to date. Anemia secondary to dilution. No gross bleeding acute kidney injury with hypokalemia, hypophosphatemia and hypocalcemia- resolved. Hyperglycemia from dextrose. A1c within normal limits Perioral herpes simplex-famciclovir orally and acyclovir topically if okay with [employer] DVT GI prophylaxis -Teds SCDs -Early aggressive mobilization Discharge Planning: Call Gonz[facility] Alberto when medical clearance is anticipated and inform them that there is a patient under a P.C. in need of chem dep treatment. Plan will be for transfer to [facility] for chem dep treatment.
--- NOTE | 2018-06-13 11:32 | P.DS ---
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 Patient was given Ativan and Haldol which improved her mental status. Psychiatry was consulted, [place] Act lifted , on d/c patient needs to be transferred to [facility] under , patient refuses but for the health of her fetus, she needs to be discharged to [facility]. For rhabdomyolysis, she was started on sodium bicarbonate, seizure was checked daily which progressively improved with intravenous normal saline with bicarbonate. LFTs also improved. Patient was discharged once CT was clearly trending down. This patient was , [facility]NA[facility] was consulted, patient received magnesium and betamethasone therapy. Patient also acute renal failure from rhabdomyolysis with hypokalemia and hypophosphatemia. This resolved with volume replacement and electrolyte replacement. Leukocytosis also resolved, no obvious source of blood culture negative today. 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 Patient will be discharged to [facility] under however [facility] is refusing and saying that bed is not available. Patient was cleared by [facility] ANA[facility]ST for discharge. She will be discharged to follow-up with [facility] next week. - Time Spent with Patient Total time spent providing and/or coordinating discharge services: Greater than 30 minutes - Quality: VTE Deep Vein Thrombosis/Pulmonary Embolism Present on Admission: No Exam Vital signs: Vital Signs 06/12/18 12:00 06/12/18 16:00 06/12/18 20:00 Temperature 97.7 F 98.1 F 97.6 F Pulse Rate 75 78 87 Respiratory Rate 20 20 18 Blood Pressure 126/64 122/67 129/70 Pulse Oximetry 100 99 99 06/13/18 00:00 06/13/18 04:00 06/13/18 07:32 Temperature 97.8 F 97.7 F 98.4 F Pulse Rate 75 73 75 Respiratory Rate 18 18 12 Blood Pressure 143/69 H 121/58 L 135/80 Pulse Oximetry 99 98 99 Intake & Output 06/12/18 06/13/18 06/13/18 18:59 06:59 18:59 Intake Total 1360 / 1360 1100 / 1100 Balance 1360 / 1360 1100 / 1100 Weight 89.4 kg Intake: IV 1360 / 1360 1100 / 1100 Sodium Bicarbonate 8.4% Inj 50 1100 / 1100 1100 / 1100 MEQ In 1/2 Normal Saline Inj 1, 000 ML @ 100 mls/hr IV.CONT . [id number] SUE Rx#:[id number] Potassium Phosphate Inj 30 MMOL 260 / 260 In NS Inj 250 ML @ 42 mls/hr IV.SIG UNSCH PRN Rx#:[id number] Other: Date of Last Bowel Movement 06/10/18 06/12/18 06/10/18 # Bowel Movements 1 Narrative: This note is for 06/14/2018 S> No complaints, no fever chills, good urine output. O> Not in distress HEENT/Neuro: No pallor or icterus, tongue dry, JUNIOR, perioral herpes simplex lesions Neck: No JVD Chest/pulmonary: CTA bilaterally Cardiovascular: S1-S2 regular no gallop or murmur GI/abdomen: Soft, nontender, bowel sounds present. Uterus enlarged on palpation (). Extremities: Warm bilaterally, no edema Awake and alert oriented clam and cooperative, no focal deficits Results Procedures completed during hospitalization: none Labs on day of discharge: Labs from last 24 hours 06/13/18 06/13/18 06/12/18 07:10 07:10 18:45 WBC 10.8 RBC 3.06 L Hgb 9.2 L Hct 26.3 L MCV 85.9 MCH 30.2 MCHC 35.1 RDW 13.2 Plt Count 279 MPV 8.2 Sodium 141 Potassium 3.5 Chloride 106 Carbon Dioxide 26.2 Anion Gap 9 BUN 12 Creatinine 0.40 L Estimated GFR Greater than 89 Random Glucose 71 L Calcium 8.4 L Total Creatine Kinase 1148 H 2288 H CK-MB (CK-2) 5.6 H 10.2 H CK-MB (CK-2) % 0.5 0.4 Preliminary micro results at discharge 06/09/18 17:50 Aerobic Blood Culture - Preliminary Blood - Peripheral No growth in 4 days Anaerobic Blood Culture - Preliminary No growth in 4 days 06/09/18 17:45 Aerobic Blood Culture - Preliminary Blood - Peripheral No growth in 4 days Anaerobic Blood Culture - Preliminary No growth in 4 days Discharge Plan - Discharge Disposition Patient Disposition: 70 Transfer To Other Facility - Discharge Condition Condition: Good - Discharge Order Discharge Orders: Discharge Order (Routine); Ordered 06/13/18 Ordered By: John Paul Mauricio - Discharge Details Anticipated Discharge Date: 06/13/18 Discharge Comment: d/c to [facility] - Physicians Team Primary Care Provider: UNKNOWN, Attending Provider: John Paul Mauricio Other Providers: Izaiah Andrade MD ; [employer],Insurance
[2018-06-14 07:46] LABS: CKMB Percent 0.7 % (0.0-4.0); Creatine Kinase MB 2.2 ng/mL (0.5-3.6)
[2018-06-14] MEDS: Potassium Phos/Sodium Phos 250 MG Tablet PO SCH (09:05)
[2018-06-14] MEDS: Famotidine 20 MG Tablet PO SCH (09:08)
== END 2018-06-14 13:40 | disposition home or self-care (01) ==
LOC: NEPC 19:28 → EDBD 20:55 → NEDA 20:55 → HIMC 23:55 → N05 06-11 15:45
PROVIDERS: ADMIT Hospitalist; ATTEND Hospitalist